=== PATIENT | male | born 1950 | race Caucasian/White ===

== ENCOUNTER 2017-09-17 15:59 | Emergency (ER) | payer MEDICARE, MEDICAID ==
[~2017-09-17] VITALS: Ht 172.7 cm; Wt 74.8 kg
[~2017-09-17 15:59] MED LIST: AMARYL4 MG PO; AVODART0.5 MG PO; CATAPRES0.2 MG PO; CEFTIN500 MG PO; CLONIDINE 0.2M0.2 MG PO; COREG CR20 MG PO; FLOMAX 0.4MG C0.4 MG PO; GABAPENTIN 400400 MG PO; GLYBURIDE2.5 M1 PO; HYZAAR 50-12.51 EACH PO; HYZAAR1 TA1 PO; INSULIN GL100 UNITS/ SC; JANUMET 1000 MG1 TAB PO; LISINOPRIL/HCTZ1 TA3 PO; LOSARTAN POTAS100 MG PO; MICARDIS HCT 251 TAB; MICARDIS HCT 251 TAB PO; OMEPRAZOLE20 MG PO; POTASSIUM CHLO10 ME3 PO; PRISTIQ100 MG PO; PROZAC40 MG PO; REGLAN 10 MG TA10 MG PO; SIMVASTATIN40 MG PO; TAMSULOSIN HYD0.4 M1 PO
[2017-09-17 16:12] LABS: LYMPH # 1.6 K/mm3 (0.7-4.5); LYMPH % 15.3 % (10-50)
--- OUTSIDE RECORDS SUMMARY | 2017-09-17 16:13 | External Medical Summary Rpt | CCD ---
Author Author , FARIHA FRIED Address Unknown Phone [email or web address] Care Team Providers Care Upper Cutter Out Name Role Phone Sondra DENNIS, Unavailable Unavailable Sondra Drew APRN, Unavailable Unavailable Lise Snell MD, Unavailable Unavailable Andree Snell MD Purpose Continuity of Care Document - 09-12-2013 through 2016 Problems Code Diagnosis DOS Provider Status [id number] Alcohol Bruce abuse [facility] 276.8 Hypokalemia [facility] 285.9 Anemia [facility] 287.5 Acquired Bruce thrombocyto [facility] [id number] Fever [facility] 401.9 Hypertensiv Bruce e urgency [facility] [id number] Diabetes Bruce mellitus [facility] type 2 [facility] [id number] Active [facility] 571.2 Alcoholic Bruce cirrhosis [facility] 584.9 Acute renal Bruce failure [facility] 784.7 Epistaxis [facility] 787.02 Nausea [facility] 790.92 Coagulation Bruce /bleeding [facility] abnormal [id number] Chronic [facility] Allergies, Adverse Reactions, Alerts Type Allergy to substance Adverse Reaction to Substance Substance Reaction Severity AVALOX TONGUE AND FACE Severe SWELLED Medications Na ND Rx Da Fi Fi Am Da Di Ph RX Ph St me C No te ll ll ou ys ag ar # ys at rm s nt no ma ic us Or Da si cy ia de te s n re d CL 51 11 1 No ON 07 -1 ID 90 7- Lo IN 30 20 ng E 02 13 er HC 0 L Ac 0. ti 2 ve MG TA BL ET CE 00 11 1 No FT 40 -1 RI 97 7- Lo AX 33 20 ng ON 30 13 er E 4 1 Ac GM ti ve AL SO 00 11 1 No DI 40 -1 UM 97 7- Lo 10 20 ng CH 16 13 er LO 6 RI Ac DE ti ve 0. 9% SO LN FS 11 2 No -1 BL 6- Lo OO 20 ng D 13 er COUCH GA Ac R ti ve FL 00 11 2 No UO 90 -1 XE 45 6- Lo TI 78 20 ng NE 56 13 er 1 HC Ac L ti 20 ve MG CA PS UL E AV 00 11 2 No AP 08 -1 RO 72 6- Lo 77 20 ng 15 23 13 er 0 1 MG Ac ti TA ve BL ET PA 51 11 2 No NT 07 -1 OP 90 6- Lo RA 05 20 ng ZO 12 13 er LE 0 Ac SO ti D ve DR 40 MG TA B PO 00 11 2 No TA 40 -1 SS 99 6- Lo IU 25 20 ng M 73 13 er CL 9 Ac 20 ti ve ME Q- 0. 45 % NA CL Sa 63 11 1 No li 80 -1 ne 70 5- Lo 10 20 ng Fl 07 13 er us 5 h Ac 10 ti ML ve Sy ri ng e MA 00 11 0 No PA 90 -1 P 41 5- Lo 32 98 20 ng 5 26 13 er MG 1 Ac TA ti BL ve ET Po 00 11 0 No ta 24 -1 ss 50 5- Lo iu 05 20 ng m 80 13 er Ch 1 lo Ac ri ti de ve 20 ME Q Ta bl e SO 00 11 1 No DI 40 -1 UM 97 5- Lo 98 20 ng CH 30 13 er LO 9 RI Ac DE ti ve 0. 9% SO BERNARD TI ON FL 00 11 0 No UO 90 -0 XE 45 5- Lo TI 78 20 ng NE 56 13 er 1 HC Ac L ti 20 ve MG CA PS UL E AV 00 11 0 No AP 08 -0 RO 72 5- Lo 77 20 ng 15 23 13 er 0 1 MG Ac ti TA ve BL ET CE 00 11 0 No FT 40 -0 RI 97 5- Lo AX 33 20 ng ON 30 13 er E 4 1 Ac GM ti ve AL SO 00 11 0 No DI 40 -0 UM 97 5- Lo 10 20 ng CH 16 13 er LO 6 RI Ac DE ti ve 0. 9% SO LN CE 00 11 0 No FT 40 -0 RI 97 4- Lo AX 33 20 ng ON 30 13 er E 4 1 Ac GM ti ve AL CE 00 11 0 No FA 40 -0 ZO 92 4- Lo LI 58 20 ng N 50 13 er 1 1 GM Ac ti AD ve D- VA N AL SO 00 11 0 No DI 40 -0 UM 97 4- Lo 98 20 ng CH 30 13 er LO 9 RI Ac DE ti ve 0. 9% SO BERNARD TI ON LA [address] 40 -0 AT 97 4- Lo ED 95 20 ng 30 13 er RI 9 NG Ac ER ti S ve IN JE CT IO N Sa 63 11 1 No li 80 -0 ne 70 4- Lo 10 20 ng Fl 07 13 er us 5 h Ac 10 ti ML ve Sy ri ng e LO 00 11 0 No RA 64 -0 ZE 16 4- Lo PA 04 20 ng M 82 13 er 2 5 MG Ac /M ti L ve AL CL 51 11 1 No ON 07 -0 ID 90 4- Lo IN 30 20 ng E 02 13 er HC 0 L Ac 0. ti 2 ve MG TA BL ET Ga 68 11 1 No ba 08 -0 pe 40 4- Lo nt 59 20 ng in 56 13 er 5 40 Ac 0M ti G ve Ca ps ul e TA 51 11 1 No MS 07 -0 UL 90 4- Lo OS 29 20 ng IN 42 13 er 0 HC Ac L ti 0. ve 4 MG CA PS UL E CO 00 11 0 No CA 52 -0 IN 71 4- Lo E 72 20 ng 4% 87 13 er 4 SO Ac BERNARD ti TI ve ON CO 61 11 0 No RT 57 -0 IS 00 4- Lo PO 03 20 ng RI 15 13 er N 0 OI Ac NT ti ME ve NT De 00 11 0 No xa 51 -0 me 74 4- Lo th 90 20 ng as 52 13 er on 5 e Ac 4M ti G/ ve Ml 5M L Md v Me 68 11 1 No to 08 -0 cl 40 4- Lo op 09 20 ng ra 10 13 er mi 1 de Ac ti 10 ve MG Ta bl et FS 11 1 No -0 BL 4- Lo OO 20 ng D 13 er COUCH GA Ac R ti ve HU 00 11 1 No MA 00 -0 LO 27 4- Lo G 51 20 ng 10 01 13 er 0 7 UN Ac IT ti S/ ve ML AL Ir 00 11 1 No be 08 -0 sa 72 4- Lo rt 77 20 ng an 13 13 er 1 75 Ac MG ti ve Ta bl et HY [address] 07 -0 OC 90 4- Lo HL 77 20 ng OR 62 13 er OT 0 HI Ac AZ ti ID ve E 12 .5 MG CP CA 51 11 1 No RV 07 -0 ED 90 4- Lo IL 93 20 ng OL 02 13 er 0 6. Ac 25 ti ve MG TA BL ET PA 51 11 1 No NT 07 -0 OP 90 4- Lo RA 05 20 ng ZO 12 13 er LE 0 Ac SO ti D ve DR 40 MG TA B Vital Signs 09-26-2013 10:27 Name Value Interpretat Reference Comment ion Range Body 98.2 [degF] Temperature BP 74 mm[Hg] Diastolic BP Systolic 169 mm[Hg] Heart 81 /min Rate/Pulse Respiratory 20 /min Rate 09-26-2013 08:00 Name Value Interpretat Reference Comment ion Range O2% 95 % 09-23-2013 22:18 Name Value Interpretat Reference Comment ion Range Height 171.45 cm Weight 99.111 kg Measured 09-23-2013 19:28 Name Value Interpretat Reference Comment ion Range Body 100.0 Temperature [degF] BP 64 mm[Hg] Diastolic BP Systolic 100 mm[Hg] Heart 93 /min Rate/Pulse O2% 93 % Respiratory 20 /min Rate Weight 0 [oz_av] Measured 09-13-2013 09:45 Name Value Interpretat Reference Comment ion Range Body 98.3 [degF] Temperature BP 76 mm[Hg] Diastolic BP Systolic 158 mm[Hg] Heart 83 /min Rate/Pulse Respiratory 22 /min Rate 09-13-2013 07:52 Name Value Interpretat Reference Comment ion Range O2% 95 % 09-12-2013 16:09 Name Value Interpretat Reference Comment ion Range Weight 99.792 kg Measured 09-12-2013 08:00 Name Value Interpretat Reference Comment ion Range Height 170.18 cm 09-12-2013 06:14 Name Value Interpretat Reference Comment ion Range Body 97.6 [degF] Temperature BP 110 mm[Hg] Diastolic BP Systolic 204 mm[Hg] Heart 74 /min Rate/Pulse O2% 98 % Respiratory 20 /min Rate Weight 0 [oz_av] Measured Results Labs Lab Lab Date Result Refere Interp Status Commen Order Detail nces retati t Range on Glucose BldC Glucomtr-nc (09-26-2013 06:39) Glucose 145 70-110 complet BldC 013 mg/dl ed Glucomt 06:39 r-[facility] BASIC METABOLIC PANEL (09-26-2013 06:20) Glucose 11-18-2 137 74-106 complet 013 mg/dL ed Bld-mCn 06:20 c BUN 11-18-2 13 7-18 complet Bld-mCn 013 mg/dL ed c 06:20 Creat 11-18-2 1.1 0.8-1.3 complet SerPl-m 013 mg/dL ed Cnc 06:20 ESTIMAT 11-18-2 94 50-200 complet ED 013 ML/MIN ed CREATIN 06:20 INE CLEARAN CE GFR 11-18-2 67 Greater complet (ESTIMA 013 ML/MIN than ed ELOY) 06:20 60 Sodium 11-18-2 139 136-145 complet SerPl-s 013 mmoL/L ed Cnc 06:20 Potassi 11-18-2 3.5 3.5-5.1 complet um 013 mmoL/L ed SerPl-s 06:20 Cnc Chlorid 11-18-2 104 98-107 complet e 013 mmoL/L ed SerPl-s 06:20 Cnc CO2 11-18-2 24 21.0-32 complet SerPl-s 013 mmoL/L .0 ed Cnc 06:20 Calcium 11-18-2 7.9 8.5-10. complet 013 mg/dL 1 ed SerPl-m 06:20 Cnc CBC with AUTO DIFF (09-26-2013 06:20) WBC # 11-18-2 6.7 4.8-10. complet Bld 013 K/MM3 8 ed Auto 06:20 RBC # 11-18-2 3.71 4.6-6.2 complet Bld 013 M/mm3 ed Auto 06:20 Hgb 11-18-2 9.9 14.1-18 complet Bld-mCn 013 g/dL .0 ed c 06:20 Hct Fr 11-18-2 30.7 % 42.0-52 complet Bld 013 .0 ed 06:20 MCV RBC 11-18-2 82.8 fl 82.2-97 complet 013 .8 ed 06:20 MCH RBC 11-18-2 26.6 pg 27-31.2 complet Qn 013 ed Auto 06:20 MEAN 11-18-2 32.1 31.8-35 complet CORPUSC 013 g/dl .4 ed ULAR 06:20 HGB CONC RDW RBC 11-18-2 15.9 % 11.5-17 complet Auto 013 .5 ed 06:20 Platele 11-18-2 184 142-424 complet t Bld 013 K/mm3 ed Ql 06:20 Manual MEAN 11-18-2 9.4 fl 7.4-10. complet PLATELE 013 4 ed T 06:20 VOLUME Granulo 11-18-2 66.7 % 37.0-80 complet cytes 013 .0 ed Fr Bld 06:20 Auto LYMPH % 11-18-2 22.3 % 10-50 complet 013 ed 06:20 Monocyt 11-18-2 10.4 % 1.7-9.3 complet es Fr 013 ed Bld 06:20 Auto Eosinop 11-18-2 0.4 % 0.1-12. complet hil Fr 013 0 ed Bld 06:20 Auto Basophi 11-18-2 0.3 % 0.1-2.0 complet ls Fr 013 ed Bld 06:20 Auto Granulo 11-18-2 4.4 1.3-8.0 complet cytes # 013 K/mm3 ed Bld 06:20 Auto Lymphoc 11-18-2 1.5 0.7-4.5 complet ytes Fr 013 K/mm3 ed Bld 06:20 Auto Monocyt 11-18-2 0.7 0.1-1.0 complet es # 013 K/mm3 ed Bld 06:20 Auto Eosinop 11-18-2 0.0 0.0-0.4 complet hil # 013 K/mm3 ed Bld 06:20 Auto Basophi 11-18-2 0.0 0-0.2 complet ls # 013 K/MM3 ed Bld 06:20 Auto Glucose BldC Glucomtr[facility] (09-25-2013 20:10) Glucose 09-25-2 137 70-110 complet BldC 013 mg/dl ed Glucomt 20:10 r-nc Glucose BldC Glucomtr-nc (09-25-2013 17:11) Glucose 11-2 129 70-110 complet BldC 013 mg/dl ed Glucomt 17:11 r-nc Glucose BldC Glucomtr-nc (09-25-2013 12:35) Glucose 09-25-2 149 70-110 complet BldC 013 mg/dl ed Glucomt 12:35 r-nc Glucose BldC Glucomtr-[facility] (09-25-2013 06:43) Glucose -17-2 155 70-110 complet BldC 013 mg/dl ed Glucomt 06:43 r-[facility] BASIC METABOLIC PANEL (09-25-2013 06:10) Glucose -17-2 147 74-106 complet 013 mg/dL ed Bld-mCn 06:10 c BUN -17-2 24 7-18 complet Bld-mCn 013 mg/dL ed c 06:10 Creat -17-2 1.7 0.8-1.3 complet SerPl-m 013 mg/dL ed Cnc 06:10 ESTIMAT -17-2 61 50-200 complet ED 013 ML/MIN ed CREATIN 06:10 INE CLEARAN CE GFR 17-2 41 Greater complet (ESTIMA 013 ML/MIN than ed ELOY) 06:10 60 Sodium -17-2 141 136-145 complet SerPl-s 013 mmoL/L ed Cnc 06:10 Potassi -17-2 3.5 3.5-5.1 complet um 013 mmoL/L ed SerPl-s 06:10 Cnc Chlorid 17-2 104 98-107 complet e 013 mmoL/L ed SerPl-s 06:10 Cnc CO2 17-2 25 21.0-32 complet SerPl-s 013 mmoL/L .0 ed Cnc 06:10 Calcium 11-17-2 8.5 8.5-10. complet 013 mg/dL 1 ed SerPl-m 06:10 [facility] CBC with AUTO DIFF (09-25-2013 06:10) WBC # 11-17-2 13.7 4.8-10. complet Bld 013 K/MM3 8 ed Auto 06:10 RBC # 11-17-2 4.02 4.6-6.2 complet Bld 013 M/mm3 ed Auto 06:10 Hgb -17-2 11.2 14.1-18 complet Bld-mCn 013 g/dL .0 ed c 06:10 Hct Fr -17-2 33.3 % 42.0-52 complet Bld 013 .0 ed 06:10 MCV RBC 11-17-2 82.8 fl 82.2-97 complet 013 .8 ed 06:10 MCH RBC 11-17-2 27.8 pg 27-31.2 complet Qn 013 ed Auto 06:10 MEAN 11-17-2 33.6 31.8-35 complet CORPUSC 013 g/dl .4 ed ULAR 06:10 HGB CONC RDW RBC 11-17-2 16.0 % 11.5-17 complet Auto 013 .5 ed 06:10 Platele 11-17-2 231 142-424 complet t Bld 013 K/mm3 ed Ql 06:10 Manual MEAN 11-17-2 9.0 fl 7.4-10. complet PLATELE 013 4 ed T 06:10 VOLUME Granulo 11-17-2 74.4 % 37.0-80 complet cytes 013 .0 ed Fr Bld 06:10 Auto LYMPH % 11-17-2 16.5 % 10-50 complet 013 ed 06:10 Monocyt 11-17-2 8.1 % 1.7-9.3 complet es Fr 013 ed Bld 06:10 Auto Eosinop 11-17-2 0.7 % 0.1-12. complet hil Fr 013 0 ed Bld 06:10 Auto Basophi 11-17-2 0.2 % 0.1-2.0 complet ls Fr 013 ed Bld 06:10 Auto Granulo 11-17-2 10.2 1.3-8.0 complet cytes # 013 K/mm3 ed Bld 06:10 Auto Lymphoc 11-17-2 2.3 0.7-4.5 complet ytes Fr 013 K/mm3 ed Bld 06:10 Auto Monocyt 11-17-2 1.1 0.1-1.0 complet es # 013 K/mm3 ed Bld 06:10 Auto Eosinop 11-17-2 0.1 0.0-0.4 complet hil # 013 K/mm3 ed Bld 06:10 Auto Basophi 11-17-2 0.0 0-0.2 complet ls # 013 K/MM3 ed Bld 06:10 Auto Glucose BldC Glucomtr-[facility] (09-24-2013 21:52) Glucose 11-16-2 102 70-110 complet BldC 013 mg/dl ed Glucomt 21:52 r[facility] Glucose BldC Glucomtr[facility] (09-24-2013 17:03) Glucose 11-16-2 99 70-110 complet BldC 013 mg/dl ed Glucomt 17:03 r-mCnc Glucose BldC Glucomtr-[facility] (09-24-2013 12:08) Glucose 09-24- 104 70-110 complet BldC 013 mg/dl ed Glucomt 12:08 r[facility] Glucose BldC Glucomtr[facility] (09-24-2013 06:37) Glucose 126 70-110 complet BldC 013 mg/dl ed Glucomt 06:37 r-[facility] BASIC METABOLIC PANEL (09-24-2013 06:15) Glucose 09-24- 114 74-106 complet 013 mg/dL ed Bld-mCn 06:15 c BUN 42 7-18 complet Bld-mCn 013 mg/dL ed c 06:15 Creat 2.6 0.8-1.3 complet SerPl-m 013 mg/dL ed Cnc 06:15 ESTIMAT 40 50-200 complet ED 013 ML/MIN ed CREATIN 06:15 INE CLEARAN CE GFR 25 Greater complet (ESTIMA 013 ML/MIN than ed ELOY) 06:15 60 Sodium 142 136-145 complet SerPl-s 013 mmoL/L ed Cnc 06:15 Potassi 3.2 3.5-5.1 complet um 013 mmoL/L ed SerPl-s 06:15 Cnc Chlorid 105 98-107 complet e 013 mmoL/L ed SerPl-s 06:15 Cnc CO2 28 21.0-32 complet SerPl-s 013 mmoL/L .0 ed Cnc 06:15 Calcium 8.0 8.5-10. complet 013 mg/dL 1 ed SerPl-m 06:15 Cnc Vit B12 Ser[facility] (09-24-2013 06:15) Vit B12 175 200-110 complet 013 pg/mL 0 ed Ser-mCn 06:15 c Folate SerPl-mCnc (09-24-2013 06:15) Folate 3.8 () complet SerPl-m 013 ng/mL ed Cnc 06:15 Ferritin SerPl-mCnc (09-24-2013 06:15) Ferriti 113 8-388 complet n 013 ng/mL ed SerPl-m 06:15 Cnc URINALYSIS/COMPLETE (09-23-2013 20:20) URINE 11-15-2 YELLOW YELLOW complet COLOR 013 ed 20:20 URINE 11-15-2 CLEAR CLEAR complet APPEARA 013 ed NCE 20:20 URINE 11-15-2 NEGATIV NEG complet GLUCOSE 013 E ed - 20:20 DIPSTIC K URINE 11-15-2 NEGATIV NEG complet BILIRUB 013 E ed IN - 20:20 DIPSTIC K URINE 11-15-2 NEGATIV NEG complet KETONE 013 E mg/dL ed 20:20 URINE 11-15-2 1.015 1.005-1 complet SPECIFI 013 UNK .030 ed C 20:20 GRAVITY URINE 11-15-2 NEGATIV NEG complet BLOOD 013 E ed 20:20 URINE 11-15-2 6.0 UNK 5.0-8.5 complet PH 013 ed 20:20 URINE 11-15-2 NEGATIV NEG complet PROTEIN 013 E mg/dL ed - 20:20 DIPSTIC K URINE 11-15-2 0.2 NEG complet UROBILI 013 E.U./dL ed NOGEN - 20:20 DIPSTIC K URINE 11-15-2 NEGATIV NEG complet NITRATE 013 E ed - 20:20 DIPSTIC K URINE 11-15-2 NEGATIV NEG complet LEUK 013 E ed ESTERAS 20:20 E URINE 11-15-2 OCC 0 complet RBC 013 rbc/hpf ed 20:20 URINE 11-15-2 OCC OCC complet SQUAMOU 013 #/hpf ed S CELLS 20:20 BASIC METABOLIC PANEL (09-23-2013 19:43) Glucose 11-15-2 121 74-106 complet 013 mg/dL ed Bld-mCn 19:43 c BUN -15-2 43 7-18 complet Bld-mCn 013 mg/dL ed c 19:43 Creat 11-15-2 3.2 0.8-1.3 complet SerPl-m 013 mg/dL ed Cnc 19:43 Creat 11-15-2 31 50-200 complet Cl 013 ML/MIN ed predict 19:43 ed SerPl C-G-vRa te GFR 15-2 20 Greater complet (ESTIMA 013 ML/MIN than ed ELOY) 19:43 60 Sodium -15-2 139 136-145 complet SerPl-s 013 mmoL/L ed Cnc 19:43 Potassi 11-15-2 3.1 3.5-5.1 complet um 013 mmoL/L ed SerPl-s 19:43 Cnc Chlorid 11-15-2 101 98-107 complet e 013 mmoL/L ed SerPl-s 19:43 Cnc CO2 11-15-2 23 21.0-32 complet SerPl-s 013 mmoL/L .0 ed Cnc 19:43 Calcium 11-15-2 8.1 8.5-10. complet 013 mg/dL 1 ed SerPl-m 19:43 Cnc CBC with AUTO DIFF (09-23-2013 19:43) WBC # 11-15-2 10.2 4.8-10. complet Bld 013 K/MM3 8 ed Auto 19:43 RBC # 11-15-2 3.88 4.6-6.2 complet Bld 013 M/mm3 ed Auto 19:43 Hgb 11-15-2 10.6 14.1-18 complet Bld-mCn 013 g/dL .0 ed c 19:43 Hct Fr 11-15-2 31.7 % 42.0-52 complet Bld 013 .0 ed 19:43 MCV RBC 11-15-2 81.5 fl 82.2-97 complet 013 .8 ed 19:43 MCH RBC 11-15-2 27.2 pg 27-31.2 complet Qn 013 ed Auto 19:43 MEAN 11-15-2 33.3 31.8-35 complet CORPUSC 013 g/dl .4 ed ULAR 19:43 HGB CONC RDW RBC 11-15-2 16.1 % 11.5-17 complet Auto 013 .5 ed 19:43 Platele 11-15-2 155 142-424 complet t Bld 013 K/mm3 ed Ql 19:43 Manual MEAN 11-15-2 10.3 fl 7.4-10. complet PLATELE 013 4 ed T 19:43 VOLUME Granulo 11-15-2 79.4 % 37.0-80 complet cytes 013 .0 ed Fr Bld 19:43 Auto LYMPH % 11-15-2 11.4 % 10-50 complet 013 ed 19:43 Monocyt 11-15-2 8.6 % 1.7-9.3 complet es Fr 013 ed Bld 19:43 Auto Eosinop 11-15-2 0.4 % 0.1-12. complet hil Fr 013 0 ed Bld 19:43 Auto Basophi 11-15-2 0.1 % 0.1-2.0 complet ls Fr 013 ed Bld 19:43 Auto Granulo 11-15-2 8.1 1.3-8.0 complet cytes # 013 K/mm3 ed Bld 19:43 Auto Lymphoc 11-15-2 1.2 0.7-4.5 complet ytes Fr 013 K/mm3 ed Bld 19:43 Auto Monocyt 11-15-2 0.9 0.1-1.0 complet es # 013 K/mm3 ed Bld 19:43 Auto Eosinop 11-15-2 0.0 0.0-0.4 complet hil # 013 K/mm3 ed Bld 19:43 Auto Basophi 11-15-2 0.0 0-0.2 complet ls # 013 K/MM3 ed Bld 19:43 Auto Glucose BldC Glucomtr-mCnc (09-13-2013 06:28) Glucose 11-05-2 175 70-110 complet BldC 013 mg/dl ed Glucomt 06:28 r-mCnc CBC with AUTO DIFF (09-13-2013 06:10) WBC # 11-05-2 9.1 4.8-10. complet Bld 013 K/mm3 8 ed Auto 06:10 RBC # 11-05-2 4.39 4.6-6.2 complet Bld 013 M/mm3 ed Auto 06:10 Hgb 11-05-2 11.2 14.1-18 complet Bld-mCn 013 g/dL .0 ed c 06:10 Hct Fr 1105-2 36.3 % 42.0-52 complet Bld 013 .0 ed 06:10 MCV RBC 11-05-2 82.6 fL 82.2-97 complet 013 .8 ed 06:10 MCH RBC 11-05-2 25.5 pg 27-31.2 complet Qn 013 ed Auto 06:10 MEAN 11-05-2 30.9 31.8-35 complet CORPUSC 013 g/dl .4 ed ULAR 06:10 HGB CONC RDW RBC -05-2 16.2 % 11.5-17 complet Auto 013 .5 ed 06:10 Platele 09-13-2 155 142-424 complet t Bld 013 K/mm3 ed Ql 06:10 Manual Granulo 81.3 % 37.0-80 complet cytes 013 .0 ed Fr Bld 06:10 Auto LYMPH % 16.2 % 10-50 complet 013 ed 06:10 Monocyt 2.5 % 1.7-9.3 complet es Fr 013 ed Bld 06:10 Auto Granulo 7.4 1.3-8.0 complet cytes # 013 K/mm3 ed Bld 06:10 Auto Lymphoc 1.5 0.7-4.5 complet ytes Fr 013 K/mm3 ed Bld 06:10 Auto Monocyt 0.2 0.1-1.0 complet es # 013 K/mm3 ed Bld 06:10 Auto Glucose BldC Glucomtr-[facility] (09-12-2013 21:17) Glucose 219 70-110 complet BldC 013 mg/dl ed Glucomt 21:17 r-nc Glucose BldC Glucomtr-[facility] (09-12-2013 16:37) Glucose 155 70-110 complet BldC 013 mg/dl ed Glucomt 16:37 r-nc PLATELET PHERESIS (09-12-2013 15:00) PLATELE [id number] complet T 013 [id number] ed PHERESI 15:00 S BASIC METABOLIC PANEL (09-12-2013 07:00) Glucose 132 74-106 complet 013 mg/dL ed Bld-mCn 07:00 c BUN 11 7-18 complet Bld-mCn 013 mg/dL ed c 07:00 Creat 0.9 0.8-1.3 complet SerPl-m 013 mg/dL ed Cnc 07:00 ESTIMAT 116 50-200 complet ED 013 ML/MIN ed CREATIN 07:00 INE CLEARAN CE GFR 85 Greater complet (ESTIMA 013 ML/MIN than ed ELOY) 07:00 60 Sodium 142 136-145 complet SerPl-s 013 mmoL/L ed Cnc 07:00 Potassi 3.7 3.5-5.1 complet um 013 mmoL/L ed SerPl-s 07:00 Cnc Chlorid 104 98-107 complet e 013 mmoL/L ed SerPl-s 07:00 Cnc CO2 2 28 21.0-32 complet SerPl-s 013 mmoL/L .0 ed Cnc 07:00 Calcium 09-12-2 8.7 8.5-10. complet 013 mg/dL 1 ed SerPl-m 07:00 Cnc LIVER PROFILE (09-12-2013 07:00) Prot 09-12-2 7.2 6.4-8.2 complet SerPl-m 013 gm/dL ed Cnc 07:00 Albumin 3.5 3.4-5.0 complet 013 gm/dL ed SerPl-m 07:00 Cnc Bilirub 09-12-2 0.5 0.2-1.0 complet 013 mg/dL ed SerPl-m 07:00 Cnc Bilirub 09-12-2 0.24 0.0-0.2 complet Direct 013 mg/dL ed 07:00 SerPl-m Cnc Bilirub 09-12-2 0.26 0-0.9 complet 013 mg/dL ed Indirec 07:00 t SerPl-m Cnc AST 09-12-2 29 U/L 15-37 complet SerPl-c 013 ed Cnc 07:00 ALT 09-12-2 37 U/L 30-65 complet SerPl-c 013 ed Cnc 07:00 ALP 100 U/L 50-136 complet SerPl-c 013 ed Cnc 07:00 PROTIME/INR (09-12-2013 07:00) PROTHRO 09-12-2 11.6 9.9-11. complet MBIN 013 SECONDS 6 ed TIME 07:00 INR Bld 2 1.08 0.9-1.1 complet 013 UNK ed 07:00 ACT PARTIAL THROMBO TIME (09-12-2013 07:00) ACT 09-12-2 26.8 25.3-32 complet PARTIAL 013 SECONDS .0 ed 07:00 THROMBO TIME CBC with AUTO DIFF (09-12-2013 07:00) WBC # -04-2 7.5 4.8-10. complet Bld 013 K/MM3 8 ed Auto 07:00 RBC # 11-04-2 4.60 4.6-6.2 complet Bld 013 M/mm3 ed Auto 07:00 Hgb 2 11.8 14.1-18 complet Bld-mCn 013 g/dL .0 ed c 07:00 Hct Fr 2 38.0 % 42.0-52 complet Bld 013 .0 ed 07:00 MCV RBC 82.6 fl 82.2-97 complet 013 .8 ed 07:00 MCH RBC 2 25.7 pg 27-31.2 complet Qn 013 ed Auto 07:00 MEAN 31.1 31.8-35 complet CORPUSC 013 g/dl .4 ed ULAR 07:00 HGB CONC RDW RBC 2 17.1 % 11.5-17 complet Auto 013 .5 ed 07:00 Platele 2 125 142-424 complet t Bld 013 K/mm3 ed Ql 07:00 Manual Granulo 2 71.4 % 37.0-80 complet cytes 013 .0 ed Fr Bld 07:00 Auto LYMPH % 09-12-2 24.2 % 10-50 complet 013 ed 07:00 Monocyt 09-12-2 4.4 % 1.7-9.3 complet es Fr 013 ed Bld 07:00 Auto Granulo 09-12-2 5.4 1.3-8.0 complet cytes # 013 K/mm3 ed Bld 07:00 Auto Lymphoc 09-12-2 1.8 0.7-4.5 complet ytes Fr 013 K/mm3 ed Bld 07:00 Auto Monocyt 09-12-2 0.3 0.1-1.0 complet es # 013 K/mm3 ed Bld 07:00 Auto Procedures Procedure DOS Code Location Performer Comment PACKED 99.04 Andree PAGE MD ON ETHMOID 21.04 Andree Coon ART [place] [facility] Encounters Encounter Start End Date Code Location Performer Type Date Inpatient KARLA Snell ([place]) 3 19:39 3 10:30 Nellie ISMON [facility] Inpatient KARLA Carrion MD ([place]) 3 06:32 3 09:45 [facility]
--- OUTSIDE RECORDS SUMMARY | 2017-09-17 16:13 | External Medical Summary Rpt | CCD ---
Author Author , FARIHA FRIED Address Unknown Phone [email or web address] Providers Care [facility] Home Care Coordinator Name Role Phone Sondra DENNIS, Unavailable Unavailable Sondra Drew APRN, Unavailable Unavailable Lise Snell MD, Unavailable Unavailable Andree Snell MD Purpose Continuity of Care Document - 09-12-2013 through 2016 Problems Code Diagnosis DOS Provider Status [id number] Alcohol [place] abuse [facility] 276.8 Hypokalemia [facility] 285.9 Anemia [facility] 287.5 Acquired [place] thrombocyto [facility] [id number] Fever [facility] 401.9 Hypertensiv [place] e urgency [facility] [id number] Diabetes [place] mellitus [facility] type 2 [facility] [id number] Active [facility] 571.2 Alcoholic [place] cirrhosis [facility] 584.9 Acute renal [place] failure [facility] 784.7 Epistaxis [facility] 787.02 Nausea [facility] 790.92 Coagulation [place] /bleeding [facility] abnormal [id number] Chronic [facility] Allergies, Adverse Reactions, Alerts Type Allergy [...] complet BldC 013 mg/dl ed Glucomt 06:39 r-[facility] BASIC METABOLIC PANEL (09-26-2013 06:20) Glucose [...] K/MM3 ed Bld 06:20 Auto Glucose BldC Glucomtr-[facility] (09-25-2013 20:10) Glucose 09-25-2 137 70-110 complet BldC 013 mg/dl ed Glucomt 20:10 r-nc Glucose BldC Glucomtr-nc (09-25-2013 17:11) Glucose 11-2 129 70-110 complet BldC 013 mg/dl ed Glucomt 17:11 r-nc Glucose BldC Glucomtr-nc (09-25-2013 12:35) Glucose 09-25-2 149 70-110 complet BldC 013 mg/dl ed Glucomt 12:35 r-nc Glucose BldC Glucomtr-[facility] (09-25-2013 06:43) Glucose -17-2 155 70-110 complet BldC 013 mg/dl ed Glucomt 06:43 r-[facility] BASIC METABOLIC PANEL (09-25-2013 06:10) Glucose [...] complet 013 mg/dL 1 ed SerPl-m 06:10 [facility] CBC with AUTO DIFF (09-25-2013 06:10) WBC [...] K/MM3 ed Bld 06:10 Auto Glucose BldC Glucomtr-[facility] (09-24-2013 21:52) Glucose 11-16-2 102 70-110 complet BldC 013 mg/dl ed Glucomt 21:52 r-[facility] Glucose BldC Glucomtr-[facility] (09-24-2013 17:03) Glucose 11-16-2 99 70-110 complet BldC 013 mg/dl ed Glucomt 17:03 r-mCnc Glucose BldC Glucomtr-[facility] (09-24-2013 12:08) Glucose 09-24- 104 70-110 complet BldC 013 mg/dl ed Glucomt 12:08 r-[facility] Glucose BldC Glucomtr-[facility] (09-24-2013 06:37) Glucose 126 70-110 complet BldC 013 mg/dl ed Glucomt 06:37 r-[facility] BASIC METABOLIC PANEL (09-24-2013 06:15) Glucose [...] 1 ed SerPl-m 06:15 Cnc Vit B12 Ser-[facility] (09-24-2013 06:15) Vit B12 175 200-110 [...] K/mm3 ed Bld 06:10 Auto Glucose BldC Glucomtr-[facility] (09-12-2013 21:17) Glucose 219 70-110 complet BldC 013 mg/dl ed Glucomt 21:17 r-nc Glucose BldC Glucomtr-[facility] (09-12-2013 16:37) Glucose 155 70-110 complet BldC 013 mg/dl ed Glucomt 16:37 r-nc PLATELET PHERESIS (09-12-2013 15:00) PLATELE [id number] complet T 013 [id number] ed PHERESI 15:00 [...] Snell ([place]) 3 19:39 3 10:30 Nellie SIMON [facility] Inpatient KARLA Carrion MD ([place]) 3 06:32 3 09:45 [facility]
--- OUTSIDE RECORDS SUMMARY | 2017-09-17 16:14 | External Medical Summary Rpt | CCD ---
Author Author [employer] Organization [employer] Address Unknown Phone Unavailable Purpose Continuity of Care Document - through 2016
--- OUTSIDE RECORDS SUMMARY | 2017-09-17 16:14 | External Medical Summary Rpt | CCD ---
Demographics Preferred Language Moroccan Marital Status Unknown Mormon Affiliation Unknown Race Unknown Ethnic Group Unknown Author Author , FARIHA FRIED Address Unknown Phone Immunization No patient found.
--- OUTSIDE RECORDS SUMMARY | 2017-09-17 16:14 | External Medical Summary Rpt | CCD ---
Demographics Preferred Language Mauritian Marital Status Unknown Tenriism Affiliation Unknown Race Unknown Ethnic Group Unknown Author Author , FARIHA FRIED Address Unknown Phone Immunization No patient found.
--- OUTSIDE RECORDS SUMMARY | 2017-09-17 16:15 | External Medical Summary Rpt ---
Author Author FARIHA Production, FARIHA Production Organization [employer] Address Unknown Phone Unavailable Results Prealbumin Observa Value Referen Units Interpr Notes Date tion ce etation Range Prealbu 12.2 20.0 - mg/dL Low No April 04 min 40.0 informa 2016 tion in 9:26 AM source data Hemogram Observa Value Referen Units Interpr Notes Date tion ce etation Range LEUKOCY 5.3 4.0 - x10(3)/ No No April 04 MARIKA 11.0 mcL informa informa 2016 tion in tion in 9:02 AM source source data data Erythro 4.63 4.30 - x10(6)/ No No April 04 cytes 5.81 mcL informa informa 2016 [#/volu tion in tion in 9:02 AM me] in source source Blood data data by Automat ed count Hemoglo 13.4 13.5 - gm/dL Low No April 04 bin 17.1 informa 2015 [Mass/v tion in 9:02 AM olume] source in data Blood Hematoc 40.7 38.9 - % No No April 04 rit 51.6 informa informa 2016 [Volume tion in tion in 9:02 AM source source Fractio data data n] of Blood by Automat ed count Erythro 87.8 82.5 - fL No No April 04 cyte 99.8 informa informa 2016 mean tion in tion in 9:02 AM corpusc source source ular data data volume [Entiti c volume] by Automat ed count Erythro 28.8 27.0 - pg No No April 04 cyte 34.3 informa informa 2016 mean tion in tion in 9:02 AM corpusc source source ular data data hemoglo bin [Entiti c mass] by Automat ed count Erythro 32.8 32.1 - gm/dL No No April 04 cyte 35.3 informa informa 2016 mean tion in tion in 9:02 AM corpusc source source ular data data hemoglo bin concent ration [Mass/v olume] by Automat ed count Erythro 14.9 11.5 - % No No April 04 cyte 15.0 informa informa 2016 distrib tion in tion in 9:02 AM ution source source width data data [Ratio] by Automat ed count Platele 133 144 - x10(3)/ Low No April 04 ts 423 mcL informa 2015 [#/volu tion in 9:02 AM me] in source Blood data by Automat ed count MPV 10.2 6.8 - fL No No April 04 10.8 informa informa 2016 tion in tion in 9:02 AM source source data data Prealbumin Observa Value Referen Units Interpr Notes Date tion ce etation Range Prealbu 15.6 20.0 - mg/dL Low No March 28 min 40.0 informa 2016 tion in 9:01 AM source data Hemogram Observa Value Referen Units Interpr Notes Date tion ce etation Range LEUKOCY 5.6 4.0 - x10(3)/ No No March 28 MARIKA 11.0 mcL informa informa 2016 tion in tion in 8:27 AM source source data data Erythro 5.12 4.30 - x10(6)/ No No March 28 cytes 5.81 mcL informa informa 2016 [#/volu tion in tion in 8:27 AM me] in source source Blood data data by Automat ed count Hemoglo 14.9 13.5 - gm/dL No March 28 bin 17.1 informa informa 2016 [Mass/v tion in tion in 8:27 AM olume] source source in data data Blood Hematoc 45.1 38.9 - % No No March 28 rit 51.6 informa informa 2016 [Volume tion in tion in 8:27 AM source source Fractio data data n] of Blood by Automat ed count Erythro 88.1 82.5 - fL No No March 28 cyte 99.8 informa informa 2016 mean tion in tion in 8:27 AM corpusc source source ular data data volume [Entiti c volume] by Automat ed count Erythro 29.1 27.0 - pg No No March 28 cyte 34.3 informa informa 2016 mean tion in tion in 8:27 AM corpusc source source ular data data hemoglo bin [Entiti c mass] by Automat ed count Erythro 33.1 32.1 - gm/dL No No March 28 cyte 35.3 informa informa 2016 mean tion in tion in 8:27 AM corpusc source source ular data data hemoglo bin concent ration [Mass/v olume] by Automat ed count Erythro 14.9 11.5 - % No No March 28 cyte 15.0 informa informa 2016 distrib tion in tion in 8:27 AM ution source source width data data [Ratio] by Automat ed count Platele 134 144 - x10(3)/ Low No March 28 ts 423 mcL informa 2016 [#/volu tion in 8:27 AM me] in source Blood data by Automat ed count MPV 10.4 6.8 - fL No No March 28 10.8 informa informa 2016 tion in tion in 8:27 AM source source data data UA Observa Value Referen Units Interpr Notes Date tion ce etation Range UA Lilian No No No No March 28 Color informa informa informa informa 2016 tion in tion in tion in tion in 8:45 AM source source source source data data data data UA Cloudy Clear No Abnorma No March 28 Appear informa l informa 2016 tion in tion in 8:45 AM source source data data UA Negativ Negativ No No No March 28 Glucose e e informa informa informa 2016 tion in tion in tion in 8:45 AM source source source data data data UA Negativ Negativ No No No March 28 Ketones e e informa informa informa 2016 tion in tion in tion in 8:45 AM source source source data data data UA Small Negativ No Abnorma No March 28 Blood e informa l informa 2016 tion in tion in 8:45 AM source source data data UA pH 5.0 4.8 - No No Referen March 28 8.0 informa informa ce 2016 tion in tion in range 8:45 AM source source valid data data for random specime ns only. UA 30 Negativ No Abnorma No March 28 Protein mg/dl e informa l informa 2016 tion in tion in 8:45 AM source source data data UA >=4 <=1 No Abnorma No March 28 Urobili mg/dl mg/dl informa l informa 2016 nogen tion in tion in 8:45 AM source source data data UA Negativ Negativ No No No March 28 Nitrite e e informa informa informa 2016 tion in tion in tion in 8:45 AM source source source data data data UA Leuk Negativ Negativ No No No March 28 Est e e informa informa informa 2016 tion in tion in tion in 8:45 AM source source source data data data UA Spec 1.030 1.001 - No No Referen March 28 Grav 1.035 informa informa ce 2016 tion in tion in range 8:45 AM source source valid data data for random specime ns only. UA WBC 5 0 - 4 /HPF High No March 28 informa 2015 tion in 8:45 AM source data UA RBC 46 0 - 3 /HPF High No March 28 informa 2015 tion in 8:45 AM source data UA 4+ No No No No March 28 Mucous informa informa informa informa 2016 tion in tion in tion in tion in 8:45 AM source source source source data data data data UA Trace No No No No March 28 Amorph informa informa informa informa 2016 tion in tion in tion in tion in 8:45 AM source source source source data data data data UA Trace No No Abnorma No March 28 Bacteri informa informa l informa 2016 a tion in tion in tion in 8:45 AM source source source data data data UA Hyal 5 0 - 2 /LPF High No March 28 Cast informa 2015 tion in 8:45 AM source data UA Gran 5 No /LPF No No March 28 Cast informa informa informa 2016 tion in tion in tion in 8:45 AM source source source data data data Prealbumin Observa Value Referen Units Interpr Notes Date ti ce etation Range Prealbu 17.0 20.0 - mg/dL Low No March 21 min 40.0 informa 2015 tion in 8:43 AM source data Hemogram Observa Value Referen Units Interpr Notes Date ti ce etation Range LEUKOCY 4.8 4.0 - x10(3)/ No March 21 MARIKA 11.0 mcL informa informa 2016 tion in tion in 8:18 AM source source data data Erythro 5.03 4.30 - x10(6)/ No March 21 cytes 5.81 mcL informa informa 2016 [#/volu tion in tion in 8:18 AM me] in source source Blood data data by Automat ed count Hemoglo 14.7 13.5 - gm/dL No March 21 bin 17.1 informa informa 2016 [Mass/v tion in tion in 8:18 AM olume] source source in data data Blood Hematoc 44.3 38.9 - % No March 21 rit 51.6 informa informa 2015 [Volume tion in tion in 8:18 AM source source Fractio data data n] of Blood by Automat ed count Erythro 88.1 82.5 - fL No March 21 cyte 99.8 informa informa 2015 mean tion in tion in 8:18 AM corpusc source source ular data data volume [Entiti c volume] by Automat ed count Erythro 29.3 27.0 - pg No March 21 cyte 34.3 informa informa 2015 mean tion in tion in 8:18 AM corpusc source source ular data data hemoglo bin [Entiti c mass] by Automat ed count Erythro 33.2 32.1 - gm/dL No March 21 cyte 35.3 informa informa 2015 mean tion in tion in 8:18 AM corpusc source source ular data data hemoglo bin concent ration [Mass/v olume] by Automat ed count Erythro 14.5 11.5 - % No March 21 cyte 15.0 informa informa 2016 distrib tion in tion in 8:18 AM ution source source width data data [Ratio] by Automat ed count Platele 103 144 - x10(3)/ Low No March 21 ts 423 [facility] informa 2016 [#/volu tion in 8:18 AM me] in source Blood data by Automat ed count MPV 10.4 6.8 - fL No March 21 10.8 informa informa 2016 tion in tion in 8:18 AM source source data data Hep Prf-Ac Observa Value Referen Units Interpr Notes Date tion ce etation Range SOURCE EXPOSURE Hepatit Negativ Negativ No No No March 19 is B e e informa informa informa 2016 virus tion in tion in tion in 10:59 surface source source source AM Ag data data data [Presen ce] in Serum by Immunoa ssay Hep B Negativ Negativ No No No March 19 Core e e informa informa informa 2016 IgM tion in tion in tion in 10:59 source source source AM data data data Hepatit Negativ Negativ No No No March 19 is A e e informa informa informa 2016 virus tion in tion in tion in 1:08 PM Ab source source source [Units/ data data data volume] in Serum by Radioim munoass ay (JALIL) Hep C Negativ Negativ No No No March 19 Ab e e informa informa informa 2016 tion in tion in tion in 11:00 source source source AM data data data Prealbumin Observa Value Referen Units Interpr Notes Date tion ce etation Range Prealbu 14.1 20.0 - mg/dL Low No March 14 min 40.0 informa 2015 tion in 8:57 AM source data Hemogram Observa Value Referen Units Interpr Notes Date tion ce etation Range LEUKOCY 5.1 4.0 - x10(3)/ No No March 14 MARIKA 11.0 mcL informa informa 2016 tion in tion in 8:32 AM source source data data Erythro 5.19 4.30 - x10(6)/ No No March 14 cytes 5.81 mcL informa informa 2016 [#/volu tion in tion in 8:32 AM me] in source source Blood data data by Automat ed count Hemoglo 15.0 13.5 - gm/dL No No March 14 bin 17.1 informa informa 2016 [Mass/v tion in tion in 8:32 AM olume] source source in data data Blood Hematoc 46.2 38.9 - % No No March 14 rit 51.6 informa informa 2016 [Volume tion in tion in 8:32 AM source source Fractio data data n] of Blood by Automat ed count Erythro 89.1 82.5 - fL No No March 14 cyte 99.8 informa informa 2015 mean tion in tion in 8:32 AM corpusc source source ular data data volume [Entiti c volume] by Automat ed count Erythro 28.9 27.0 - pg No March 14 cyte 34.3 informa informa 2015 mean tion in tion in 8:32 AM corpusc source source ular data data hemoglo bin [Entiti c mass] by Automat ed count Erythro 32.4 32.1 - gm/dL No March 14 cyte 35.3 informa informa 2015 mean tion in tion in 8:32 AM corpusc source source ular data data hemoglo bin concent ration [Mass/v olume] by Automat ed count Erythro 14.3 11.5 - % No March 14 cyte 15.0 informa informa 2016 distrib tion in tion in 8:32 AM ution source source width data data [Ratio] by Automat ed count Platele 113 144 - x10(3)/ Low No March 14 ts 423 mcL informa 2015 [#/volu tion in 8:32 AM me] in source Blood data by Automat ed count MPV 10.6 6.8 - fL No March 14 10.8 informa informa 2016 tion in tion in 8:32 AM source source data data Prealbumin Observa Value Referen Units Interpr Notes Date tion ce etation Range Prealbu 11.9 20.0 - mg/dL Low No Mar 07 min 40.0 informa 2015 tion in 8:53 AM source data Hemogram Observa Value Referen Units Interpr Notes Date tion ce etation Range LEUKOCY 8.5 4.0 - x10(3)/ No No Mar 07 MARIKA 11.0 mcL informa informa 2016 tion in tion in 8:28 AM source source data data Erythro 5.03 4.30 - x10(6)/ No No Mar 07 cytes 5.81 mcL informa informa 2016 [#/volu tion in tion in 8:28 AM me] in source source Blood data data by Automat ed count Hemoglo 14.7 13.5 - gm/dL No No Mar 07 bin 17.1 informa informa 2016 [Mass/v tion in tion in 8:28 AM olume] source source in data data Blood Hematoc 44.2 38.9 - % No No Mar 07 rit 51.6 informa informa 2016 [Volume tion in tion in 8:28 AM source source Fractio data data n] of Blood by Automat ed count Erythro 87.9 82.5 - fL No No Mar 07 cyte 99.8 informa informa 2016 mean tion in tion in 8:28 AM corpusc source source ular data data volume [Entiti c volume] by Automat ed count Erythro 29.3 27.0 - pg No No Mar 07 cyte 34.3 informa informa 2016 mean tion in tion in 8:28 AM corpusc source source ular data data hemoglo bin [Entiti c mass] by Automat ed count Erythro 33.3 32.1 - gm/dL No No Mar 07 cyte 35.3 informa informa 2016 mean tion in tion in 8:28 AM corpusc source source ular data data hemoglo bin concent ration [Mass/v olume] by Automat ed count Erythro 14.2 11.5 - % No No Mar 07 cyte 15.0 informa informa 2016 distrib tion in tion in 8:28 AM ution source source width data data [Ratio] by Automat ed count Platele 133 144 - x10(3)/ Low No Mar 07 ts 423 mcL informa 2016 [#/volu tion in 8:28 AM me] in source Blood data by Automat ed count MPV 11.2 6.8 - fL High No Mar 07 10.8 informa 2016 tion in 8:28 AM source data
--- OUTSIDE RECORDS SUMMARY | 2017-09-17 16:15 | External Medical Summary Rpt ---
[...] x10(3)/ Low No March 21 ts 423 [facility] informa 2016 [#/volu tion in 8:18 AM [...] 4.0 - x10(3)/ No No March 14 MARIAK 11.0 mcL informa informa 2016 tion in [...]
[2017-09-17 16:20] LABS: HEMOGLOBIN 11.4 g/dL (14.1-18.0)
[2017-09-17 16:46] LABS: BUN 11 mg/dL (7-18); GFR (ESTIMATED) 112 ML/MIN (>60)
[2017-09-17] MEDS ORDERED: GENERLAC10 GM/15 M PO (17:06)
--- NOTE | 2017-09-17 17:07 | Emergency Room Report ---
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 Clinical Suspician of Infection? Mental Status: Sepsis Risk: Have you (or family members/close friends) recently traveled outside the [place]? If Yes, where/when: Have you had exposure to infectious disease within the past month? TB? Other? 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 As he has a history of alcoholic cirrhosis. He has history OF aspiration and is on thickened liquid diet. Today he did not respond to the nursing nursing staff for 20 minutes surgery Center in for evaluation. In the ER he reported that he was able to hear them but he did not want to respond to the nursing staff. In fact he wanted to be left alone. He is in no cardiopulmonary distress. I spoke with his confirming that he is DNR. Source patient, RN notes reviewed, family, old records Exam Limitations clinical condition ALLERGIES Coded Allergies: moxifloxacin (From Avelox) (Severe, TONGUE AND FACE SWELLED 09/17/17) Home Medications Active Scripts CLONIDINE HYDROCHLORIDE (Catapres 0.2MG) 0.2 MG PO BID #30 Prov: 09/26/13 Clonidine Hydrochloride (Clonidine 0.2MG Tab) 0.2 MG PO BID 30 Days Prov: 09/26/13 Losartan Potassium (Losartan 100MG) 100 MG PO DAILY #30 TAB Prov: 09/26/13 Reported Medications Omeprazole (Omeprazole 20MG) 20 MG PO BID TAMSULOSIN HCL (Tamsulosin HCl) 0.4 MG PO QHS #30 CAP Simvastatin (Simvastatin 40MG Tab) 40 MG PO QHS INSULIN GLARGINE (Lantus 3ML Solostar Pen) 28 UNITS SC QHS Desvenlafaxine Succinate (Pristiq ER) 100 MG PO DAILY History Medical History General CAD? No Angina: Yes AK: No Hypertension? Yes Hyperlipidemia? Yes CHF? No DVT? No PE? No COPD? Yes Asthma? No Anemia? Yes GERD? Yes Gastric ulcers? No GI Bleed? No Hernia? No Thyroid Problems? No Hypothyroidism? No CVA? No Seizures? No Diabetes? Yes Insulin Dependent: Yes Insulin Pump: No Home FSBS? Yes Renal Insuffiency? No End Stage Renal Disease? No UTI? Yes Stones? Yes BPH? No GB Disease: No Nephritic Syndrome? No Asplenia? No Hepatitis? No Sickle Cell Disease? No Arthritis? Yes Migraines? No Cataracts? Yes Glaucoma? Yes MRSA? No HIV? No TB? No Anxiety? No Depression? Yes Cancer? Yes Site: ESOPHAGEAL Immunization Hx DT/Tetanus Unknown Flu 2012-14FSN Pneumonia Received In Past Surgical Hx Previous Surgery?Y SHOULDER-RT X 2 SINUS Family History Family Hx Diabetes Yes CAD Yes Hypertension Yes Hyperlipidemia Yes Cancer Yes TB No Social History Smoking Hx Packs/day < 1 Pack Alcohol Alcohol: No Review of Systems All Other Systems Reviewed and Negative Constitutional see HPI Eyes no symptoms reported ENT no symptoms reported. Respiratory no symptoms reported Cardiovascular no symptoms reported Gastrointestinal no symptoms reported Genitourinary no symptoms reported. Musculoskeletal no symptoms reported Skin no symptoms reported Psychiatric/Neurological no symptoms reported (left HEMIPARESTHESIAS), denies see HPI (left HAND PARESTHESIAS) Physical Exam Vital Signs Vital Signs Date Time Temp Pulse Resp B/P Pulse O2 O2 Flow FiO2 Ox Delivery Rate 09/17 1740 98.2 72 18 142/80 98 General Appearance normal appearance, WD/WN Eye Exam - bilateral eye normal exam, bilateral eye PERRL, bilateral eye EOMI Ear, Nose, Throat hearing grossly normal, normal ENT inspection Neck normal inspection, non-tender, supple, full range of motion Respiratory Status Yes: trachea midline, chest symmetrical, non tender chest. No: respiratory distress. Lung Sounds bilateral: normal breath sounds, lungs clear. 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 No Results/Orders Laboratory Tests 09/17/17 1604: Sodium 136, Potassium 4.4, Chloride 104, Carbon Dioxide 29, BUN 11, Creatinine 0.7 L, Estimated GFR (MDRD) 112, Glucose 123 H, Calcium 8.5, Total Bilirubin 0.8, AST 18, ALT 17, Alkaline Phosphatase 119 H, Creatine Kinase 41, CK-MB (CK- 2) Rel Index 2.4, CK and CKMB Interp 1.0, Troponin I < 0.02, Total Protein 6.6, Albumin 1.9 L, Globulin 4.7 H, Albumin/Globulin Ratio 0.4 L, WBC 10.3, RBC 4.54 L, Hgb 11.4 L, Hct 36.5 L, MCV 80.4 L, RDW 14.1, Plt Count 225, MPV 8.6 , Gran % 68.4, Gran # 7.1, Lymphocytes % 15.3, Monocytes % 15.1 H, Eosinophils % 0.7, Basophils % 0.4, Lymphocytes # 1.6, Monocytes # 1.6 H, Eosinophils # 0.1 , Basophils # 0.0, PUBS MCHC 31.2 L, MCH 25.1 L Current Medication Orders Sig/Ramón Start time Last Medication Dose Route Stop Time Status Admin Lactulose 15 GM ONCE ONE 09/17 171 DC PO 09/17 171 Sodium Chloride 1,000 ML .Q1H1M 09/17 171 AC IV 09/17 1815 Sodium Chloride 10 ML PRN PRN 09/17 1715 AC IV 09/18 1707 Sodium Chloride 10 ML PRN PRN 09/17 1615 AC IV 09/18 1604 Orders Procedure Date/time Status ELECTROCARDIOGRAM REQUEST 09/17 160 Active CHEST-PORTABLE 09/17 160 Active IV SALINE LOCK 09/17 160 Active CBC WITH AUTO DIFF 09/17 1606 Complete CARDIAC ENZYMES 09/17 160 Complete CHEM 12 PROFILE 09/17 160 Complete 12 LEAD EKG-BESSON (INITIAL) 09/17 UNK Active Departure Departure Time of Disposition 1701 Disposition DC Home or Self Care(routine) Clinical Impression Primary Impression: Dehydration Secondary Impressions: CVA, old, speech/language deficit, DNR (do not resuscitate), Left hemiplegia, Liver cirrhosis Condition STABLE Referrals Andree Snell MD (Family) Additional Instructions The patietn remianed stable , reciebed IVF , started on lactulose. I discussed with who informed me that he is DNR and no agressive manag,ent is needed. She was agreeable for fluids and lactulose, she will bring him back if he is worse. Discharge Counseling Counseled pt/family regarding diagnosis, test results, medications/RX, home care, follow up needs Prescriptions Current Visit Scripts Lactulose (Generlac) 10 GM PO Q8 #30 ML ED Critical Care Critical Care No at 1800
[2017-09-17 18:58] VITALS: BP 127/60
--- NOTE | 2017-09-18 08:38 | RADIOLOGY REPORT PS360 ---
CHEST-PORTABLE HISTORY: Altered mental status, altered level of consciousness, AMS ORDERING PHYSICIAN: Orestes Wild MD PATIENT AGE: 66 years COMPARISON: 09/23/2013 FINDINGS: The cardiomediastinal silhouette and pulmonary vascularity are within normal limits. Opacification present in the left lower lobe consistent with pneumonia. Remaining lungs are clear... Hyperinflation with attenuation of the peripheral pulmonary vessels consistent with COPD No acute bony abnormalities. IMPRESSION: Left lower lobe pneumonia
== END 2017-09-17 18:34 | disposition home or self-care (01) ==
LOC: ER 15:59
PROVIDERS: Emergency Medicine
DX: E86.0 Dehydration (principal); I69.354 Hemiplegia and hemiparesis following cerebral infarction affecting left non-dominant side; Z72.0 Tobacco use; K70.30 Alcoholic cirrhosis of liver without ascites; Z85.01 Personal history of malignant neoplasm of esophagus; E11.9 Type 2 diabetes mellitus without complications; Z79.4 Long term (current) use of insulin; K21.9 Gastro-esophageal reflux disease without esophagitis; E78.5 Hyperlipidemia, unspecified

== ENCOUNTER 2017-09-19 07:57 | Inpatient (IN) | payer OTHER, MEDICARE, MEDICAID ==
[~2017-09-19] VITALS: Ht 170.2 cm; Wt 73.1 kg
[2017-09-19] VITALS (9 sets, daily range): BP systolic 84–141; BP diastolic 39–61
[~2017-09-19 07:57] MED LIST changes: +GENERLAC10 GM/15 M PO
[2017-09-19] MEDS ORDERED: ELIQUIS5 MG PO ×2 (08:10→10:13)
[2017-09-19 08:12] LABS: HEMOGLOBIN 12.5 g/dL (14.1-18.0); LYMPH # 1.5 K/mm3 (0.7-4.5); LYMPH % 6.8 % (10-50)
--- NOTE | 2017-09-19 08:23 | Emergency Room Report ---
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 N Clinical Suspician of Infection? N Mental Status: 1 - Regular (Normal Baseline) Sepsis Risk:Low Sepsis Risk Have you (or family members/close friends) recently traveled outside the [place]? N If Yes, where/when: Have you had exposure to infectious disease within the past month? N TB? Other? Specify: Mr. Noel is well known to me from previous visit 2 days ago with hx of CVA , left hemiparesis, and aspiration of anything less than thick liquids. He has a hx of liver cirrhosis and alcoholism. His labs were within normal limits but he was not on lactulose and was started on lactulose with plan for follow up with Dr. Snell. He was thirsty and wanted to drink a lot of water. Today, He was brought due to altered mental stauts and low sat of 89%, he sounds congested and he most probably aspirated. Source RN notes reviewed, EMS, half-way records, old records Exam Limitations clinical condition ALLERGIES Coded Allergies: moxifloxacin (From Avelox) (Severe, TONGUE AND FACE SWELLED 09/17/17) Home Medications Active Scripts Lactulose (Generlac) 10 GM PO Q8 #30 ML Prov: 09/17/17 CLONIDINE HYDROCHLORIDE (Catapres 0.2MG) 0.2 MG PO BID #30 Prov: 09/26/13 Clonidine Hydrochloride (Clonidine 0.2MG Tab) 0.2 MG PO BID 30 Days Prov: 09/26/13 Losartan Potassium (Losartan 100MG) 100 MG PO DAILY #30 TAB Prov: 09/26/13 Reported Medications Omeprazole (Omeprazole 20MG) 20 MG PO BID TAMSULOSIN HCL (Tamsulosin HCl) 0.4 MG PO QHS #30 CAP Simvastatin (Simvastatin 40MG Tab) 40 MG PO QHS Apixaban (Eliquis) 5 MG PO BID #20 INSULIN GLARGINE (Lantus 3ML Solostar Pen) 28 UNITS SC QHS Desvenlafaxine Succinate (Pristiq ER) 100 MG PO DAILY History Medical History General CAD? No Angina: Yes [place]: No Hypertension? Yes Hyperlipidemia? Yes CHF? No DVT? No PE? No COPD? Yes Asthma? No Anemia? Yes GERD? Yes Gastric ulcers? No GI Bleed? No Hernia? No Thyroid Problems? No Hypothyroidism? No CVA? No Seizures? No Diabetes? Yes Insulin Dependent: Yes Insulin Pump: No Home FSBS? Yes Renal Insuffiency? No End Stage Renal Disease? No UTI? Yes Stones? Yes BPH? No GB Disease: No Nephritic Syndrome? No Asplenia? No Hepatitis? No Sickle Cell Disease? No Arthritis? Yes Migraines? No Cataracts? Yes Glaucoma? Yes MRSA? No HIV? No TB? No Anxiety? No Depression? Yes Cancer? Yes Site: ESOPHAGEAL Immunization Hx DT/Tetanus Unknown Flu 2012-FSN Pneumonia Received In Past Surgical Hx Previous Surgery?Y SHOULDER-RT X 2 SINUS Family History Family Hx Diabetes Yes CAD Yes Hypertension Yes Hyperlipidemia Yes Cancer Yes TB No Social History Smoking Hx Smoker: Former Smoker Tobacco: No Packs/day < 1 Pack Alcohol Alcohol: No Review of Systems All Other Systems Reviewed and Negative Constitutional see HPI, malaise Eyes no symptoms reported ENT no symptoms reported. Respiratory shortness of breath (congested ) Cardiovascular no symptoms reported Gastrointestinal no symptoms reported Genitourinary no symptoms reported. Musculoskeletal no symptoms reported Skin no symptoms reported Psychiatric/Neurological see HPI, depressed, pre-existing deficit, weakness (lehargic) Physical Exam Vital Signs Vital Signs Date Time Temp Pulse Resp B/P Pulse O2 O2 Flow FiO2 Ox Delivery Rate 09/19 0907 71 22 84/50 95 2 09/19 0800 89 09/19 0757 98.7 84 22 102/56 89 o2 sat increased to 93 by using one liter of oxygen. (Torri SIMON,[facility]) - WBC >12,000 or <4,000 or 10% bands? 2 or more SIRS Criteria Met? B/P:102/56 MAP:71 Creatinine >2.0? UA output<0.5ml/kg/hr for 2 hrs? Platelet count >100,000? Lactate >2.0mmol/1? INR >1.2 or PTT > than 60 sec? Evidence of Organ Dysfunction? Provider documented clinical suspician of infection? N Sepsis Criteria Count: 1 Sepsis Risk: Low Sepsis Risk General Appearance no apparent distress, lethargic Eye Exam - bilateral eye normal exam, bilateral eye PERRL, bilateral eye EOMI Ear, Nose, Throat hearing grossly normal, normal ENT inspection Neck normal inspection, non-tender, supple, full range of motion Respiratory Status Yes: trachea midline, chest symmetrical, non tender chest. No: respiratory distress. Lung Sounds posterior: rhonchi, crackles. left: rhonchi, crackles. right: rhonchi, crackles. 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 he has hard time follwoing comand most likely due to weakness. Skin intact, normal color, warm/dry Lymphatic no adenopathy Medical Decision Making LABS/Meds/Orders Pt receiving controlled substance in ED? No Results/Orders Laboratory Tests 09/19/17 0819: Lactic Acid 1.5 09/19/17 0755: Sodium 135 L, Potassium 4.3, Chloride 104, Carbon Dioxide 25, BUN 12, Creatinine 0.7 L, Estimated Creat Clear 104, Estimated GFR (MDRD) 112, Glucose 158 H, Calcium 8.2 L, Total Bilirubin 1.4 H, AST 13 L, ALT 13, Alkaline Phosphatase 108, Creatine Kinase 27 L, CK-MB (CK-2) Rel Index 1.9, CK and CKMB Interp < 0.5, Troponin I < 0.02, Total Protein 6.3 L, Albumin 1.7 L, Globulin 4.6 H, Albumin/Globulin Ratio 0.4 L, WBC 21.5 *H, RBC 5.06, Hgb 12.5 L, Hct 40.0 L, MCV 79.1 L, RDW 14.2, Plt Count 313, MPV 8.9, Gran % 87.0 H, Gran # 18.7 H, Total Counted 100, Lymphocytes % 6.8 L, Monocytes % 6.0, Eosinophils % 0.1, Basophils % 0.1, Neutrophils 93 H, Lymphocytes (Manual) 4 L, Lymphocytes # 1.5, Monocytes (Manual) 3, Monocytes # 1.3 H, Eosinophils # 0.0, Basophils # 0.0, Platelet Estimate NORMAL, Hypochromasia 2+, Kerrick Cells 2+, PUBS MCHC 31.3 L, MCH 24.7 L Current Medication Orders Sig/Ramón Start time Last Medication Dose Route Stop Time Status Admin Sodium Chloride 1,000 ML .Q1H1M 09/19 0915 AC 09/19 IV 09/19 1015 0910 Sodium Chloride 10 ML PRN PRN 09/19 0915 AC IV 09/20 0910 Sodium Chloride 1,000 ML .STK-MED ONE 09/19 0910 DC IV Sodium Chloride 50 ML .STK-MED ONE 09/19 0843 DC IV Piperacillin Sod/ 0 .STK-MED ONE 09/19 0842 DC Tazobactam Sod .ROUTE Piperacillin Sod/ 3.375 GM ONCE ONE 09/19 0830 DC 09/19 Tazobactam Sod IV 09/19 0859 0905 Sodium Chloride 50 ML Sodium Chloride 10 ML PRN PRN 09/19 0815 AC IV 09/20 0801 Orders Procedure Date/time Status DIET-NOTHING BY MOUTH 09/19 L Active OXYGEN PER NURSE 09/19 0907 Active Decision to admit 09/19 09 Active CULTURE, BLOOD 09/19 0826 Active LACTIC ACID 09/[address] HEAD W/O CONTRAST 09/19 0816 Active ELECTROCARDIOGRAM REQUEST 09/[address] HEAD REQ 09/19 08 Complete CHEST-PORTABLE 09/19 08 Active IV SALINE LOCK 09/19 08 Active CBC WITH AUTO DIFF 09/19 08 Complete CARDIAC ENZYMES 09/19 08 Complete CHEM 12 PROFILE 09/19 08 Complete DIFFERENTIAL-WBC 09/19 0755 Complete CM/EKG CM/EKG EKG rate, NSR, rhythm, no evid. of ischemic chgs, no ectopy, normal QRS, normal HI, normal EKG Comments NSR 80 per minute with no acute findings. XRAY/CT/US XRAY/CT/US XRAY chest XR interpretation by reviewed by me Xray Results positive for left lung infiltrates. Departure Departure Time of Disposition 901 Disposition Still a Patient Clinical Impression Primary Impression: Aspiration pneumonia Secondary Impressions: CVA, old, aphasia, Dysphagia, History of alcoholism, Liver cirrhosis, Pneumonia involving left lung Condition STABLE Referrals Channing SIMON,Andree Coon (Family) Additional Instructions I called His and she decided that this admisson to make him a full code. She is aware that he has muti system disesase and possibility of a poor outcome. She is out of town and will be back tomorrow to check on him. I called Dr Snell who agreed admit for pneumonia, due to his high risk being aspiration, half-way and low albumin will start him on zosyn and vancomycin untill culture results. PROR TO ADMISSIN HIS BP DECREASED TO 80/60 WAS GIVEN IVF BOLUS 200 L WITH INCREASE TO 97/50 MMHG HR 67/MIN, IN NO RESP DISTRESS SAT 98% ON 2 L NC. HE WAS ADITTED IN A HEMODYNAMICALLY AND NEUROLOGICALLY STABLE CONDITION. DR. WILD Discharge Counseling Counseled pt/family regarding diagnosis (discussed with the ), medications/RX ED Critical Care Critical Care No If Critical Care minutes are documented, the time involved in the performance of seperately reportable procedures was not counted toward critical care time documented. I directly delivered medical care to this critically ill and/or injured patient. Timely evaluation and treatment was necessary to address the significant organ system(s) dysfunction present in this patient. at 0934
--- NOTE | 2017-09-19 08:23 | Emergency Room Report ---
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 N Clinical Suspician of Infection? N Mental Status: 1 - Regular (Normal Baseline) Sepsis Risk:Low Sepsis Risk Have you (or family members/close friends) recently traveled outside the [place]? N If Yes, where/when: Have you had exposure to infectious disease within the past month? N TB? Other? Specify: Mr. Noel is well known to me from previous visit 2 days ago with hx of CVA , left hemiparesis, and aspiration of anything less than thick liquids. He has a hx of liver cirrhosis and alcoholism. His labs were within normal limits but he was not on lactulose and was started on lactulose with plan for follow up with Dr. Snell. He was thirsty and wanted to drink a lot of water. Today, He was brought due to altered mental stauts and low sat of 89%, he sounds congested and he most probably aspirated. Source RN notes reviewed, EMS, retirement records, old records Exam Limitations clinical condition ALLERGIES Coded Allergies: moxifloxacin (From Avelox) (Severe, TONGUE AND FACE SWELLED 09/17/17) Home Medications Active Scripts Lactulose (Generlac) 10 GM PO Q8 #30 ML Prov: 09/17/17 CLONIDINE HYDROCHLORIDE (Catapres 0.2MG) 0.2 MG PO BID #30 Prov: 09/26/13 Clonidine Hydrochloride (Clonidine 0.2MG Tab) 0.2 MG PO BID 30 Days Prov: 09/26/13 Losartan Potassium (Losartan 100MG) 100 MG PO DAILY #30 TAB Prov: 09/26/13 Reported Medications Omeprazole (Omeprazole 20MG) 20 MG PO BID TAMSULOSIN HCL (Tamsulosin HCl) 0.4 MG PO QHS #30 CAP Simvastatin (Simvastatin 40MG Tab) 40 MG PO QHS Apixaban (Eliquis) 5 MG PO BID #20 INSULIN GLARGINE (Lantus 3ML Solostar Pen) 28 UNITS SC QHS Desvenlafaxine Succinate (Pristiq ER) 100 MG PO DAILY History Medical History General CAD? No Angina: Yes [place]: No Hypertension? Yes Hyperlipidemia? Yes CHF? No DVT? No PE? No COPD? Yes Asthma? No Anemia? Yes GERD? Yes Gastric ulcers? No GI Bleed? No Hernia? No Thyroid Problems? No Hypothyroidism? No CVA? No Seizures? No Diabetes? Yes Insulin Dependent: Yes Insulin Pump: No Home FSBS? Yes Renal Insuffiency? No End Stage Renal Disease? No UTI? Yes Stones? Yes BPH? No GB Disease: No Nephritic Syndrome? No Asplenia? No Hepatitis? No Sickle Cell Disease? No Arthritis? Yes Migraines? No Cataracts? Yes Glaucoma? Yes MRSA? No HIV? No TB? No Anxiety? No Depression? Yes Cancer? Yes Site: ESOPHAGEAL Immunization Hx DT/Tetanus Unknown Flu 2012-FSN Pneumonia Received In Past Surgical Hx Previous Surgery?Y SHOULDER-RT X 2 SINUS Family History Family Hx Diabetes Yes CAD Yes Hypertension Yes Hyperlipidemia Yes Cancer Yes TB No Social History Smoking Hx Smoker: Former Smoker Tobacco: No Packs/day < 1 Pack Alcohol Alcohol: No Review of Systems All Other Systems Reviewed and Negative Constitutional see HPI, malaise Eyes no symptoms reported ENT no symptoms reported. Respiratory shortness of breath (congested ) Cardiovascular no symptoms reported Gastrointestinal no symptoms reported Genitourinary no symptoms reported. Musculoskeletal no symptoms reported Skin no symptoms reported Psychiatric/Neurological see HPI, depressed, pre-existing deficit, weakness (lehargic) Physical Exam Vital Signs Vital Signs Date Time Temp Pulse Resp B/P Pulse O2 O2 Flow FiO2 Ox Delivery Rate 09/19 0907 71 22 84/50 95 2 09/19 0800 89 09/19 0757 98.7 84 22 102/56 89 o2 sat increased to 93 by using one liter of oxygen. (Torri SIMON,[facility]) - WBC >12,000 or <4,000 or 10% bands? 2 or more SIRS Criteria Met? B/P:102/56 MAP:71 Creatinine >2.0? UA output<0.5ml/kg/hr for 2 hrs? Platelet count >100,000? Lactate >2.0mmol/1? INR >1.2 or PTT > than 60 sec? Evidence of Organ Dysfunction? Provider documented clinical suspician of infection? N Sepsis Criteria Count: 1 Sepsis Risk: Low Sepsis Risk General Appearance no apparent distress, lethargic Eye Exam - bilateral eye normal exam, bilateral eye PERRL, bilateral eye EOMI Ear, Nose, Throat hearing grossly normal, normal ENT inspection Neck normal inspection, non-tender, supple, full range of motion Respiratory Status Yes: trachea midline, chest symmetrical, non tender chest. No: respiratory distress. Lung Sounds posterior: rhonchi, crackles. left: rhonchi, crackles. right: rhonchi, crackles. 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 he has hard time follwoing comand most likely due to weakness. Skin intact, normal color, warm/dry Lymphatic no adenopathy Medical Decision Making LABS/Meds/Orders Pt receiving controlled substance in ED? No Results/Orders Laboratory Tests 09/19/17 0819: Lactic Acid 1.5 09/19/17 0755: Sodium 135 L, Potassium 4.3, Chloride 104, Carbon Dioxide 25, BUN 12, Creatinine 0.7 L, Estimated Creat Clear 104, Estimated GFR (MDRD) 112, Glucose 158 H, Calcium 8.2 L, Total Bilirubin 1.4 H, AST 13 L, ALT 13, Alkaline Phosphatase 108, Creatine Kinase 27 L, CK-MB (CK-2) Rel Index 1.9, CK and CKMB Interp < 0.5, Troponin I < 0.02, Total Protein 6.3 L, Albumin 1.7 L, Globulin 4.6 H, Albumin/Globulin Ratio 0.4 L, WBC 21.5 *H, RBC 5.06, Hgb 12.5 L, Hct 40.0 L, MCV 79.1 L, RDW 14.2, Plt Count 313, MPV 8.9, Gran % 87.0 H, Gran # 18.7 H, Total Counted 100, Lymphocytes % 6.8 L, Monocytes % 6.0, Eosinophils % 0.1, Basophils % 0.1, Neutrophils 93 H, Lymphocytes (Manual) 4 L, Lymphocytes # 1.5, Monocytes (Manual) 3, Monocytes # 1.3 H, Eosinophils # 0.0, Basophils # 0.0, Platelet Estimate NORMAL, Hypochromasia 2+, Paron Cells 2+, PUBS MCHC 31.3 L, MCH 24.7 L Current Medication Orders Sig/Ramón Start time Last Medication Dose Route Stop Time Status Admin Sodium Chloride 1,000 ML .Q1H1M 09/19 0915 AC 09/19 IV 09/19 1015 0910 Sodium Chloride 10 ML PRN PRN 09/19 0915 AC IV 09/20 0910 Sodium Chloride 1,000 ML .STK-MED ONE 09/19 0910 DC IV Sodium Chloride 50 ML .STK-MED ONE 09/19 0843 DC IV Piperacillin Sod/ 0 .STK-MED ONE 09/19 0842 DC Tazobactam Sod .ROUTE Piperacillin Sod/ 3.375 GM ONCE ONE 09/19 0830 DC 09/19 Tazobactam Sod IV 09/19 0859 0905 Sodium Chloride 50 ML Sodium Chloride 10 ML PRN PRN 09/19 0815 AC IV 09/20 0801 Orders Procedure Date/time Status DIET-NOTHING BY MOUTH 09/19 L Active OXYGEN PER NURSE 09/19 0907 Active Decision to admit 09/19 09 Active CULTURE, BLOOD 09/19 0826 Active LACTIC ACID 09/[address] HEAD W/O CONTRAST 09/19 0816 Active ELECTROCARDIOGRAM REQUEST 09/[address] HEAD REQ 09/19 08 Complete CHEST-PORTABLE 09/19 08 Active IV SALINE LOCK 09/19 08 Active CBC WITH AUTO DIFF 09/19 08 Complete CARDIAC ENZYMES 09/19 08 Complete CHEM 12 PROFILE 09/19 08 Complete DIFFERENTIAL-WBC 09/19 0755 Complete CM/EKG CM/EKG EKG rate, NSR, rhythm, no evid. of ischemic chgs, no ectopy, normal QRS, normal MS, normal EKG Comments NSR 80 per minute with no acute findings. XRAY/CT/US XRAY/CT/US XRAY chest XR interpretation by reviewed by me Xray Results positive for left lung infiltrates. Departure Departure Time of Disposition 901 Disposition Still a Patient Clinical Impression Primary Impression: Aspiration pneumonia Secondary Impressions: CVA, old, aphasia, Dysphagia, History of alcoholism, Liver cirrhosis, Pneumonia involving left lung Condition STABLE Referrals Channing SIMON,Andree Coon (Family) Additional Instructions I called His and she decided that this admisson to make him a full code. She is aware that he has muti system disesase and possibility of a poor outcome. She is out of town and will be back tomorrow to check on him. I called Dr Snell who agreed admit for pneumonia, due to his high risk being aspiration, retirement and low albumin will start him on zosyn and vancomycin untill culture results. PROR TO ADMISSIN HIS BP DECREASED TO 80/60 WAS GIVEN IVF BOLUS 200 L WITH INCREASE TO 97/50 MMHG HR 67/MIN, IN NO RESP DISTRESS SAT 98% ON 2 L NC. HE WAS ADITTED IN A HEMODYNAMICALLY AND NEUROLOGICALLY STABLE CONDITION. DR. WILD Discharge Counseling Counseled pt/family regarding diagnosis (discussed with the ), medications/RX ED Critical Care Critical Care No If Critical Care minutes are documented, the time involved in the performance of seperately reportable procedures was not counted toward critical care time documented. I directly delivered medical care to this critically ill and/or injured patient. Timely evaluation and treatment was necessary to address the significant organ system(s) dysfunction present in this patient. at 0934
[2017-09-19 08:36] LABS: BUN 12 mg/dL (7-18)
[2017-09-19 08:38] LABS: GFR (ESTIMATED) 112 ML/MIN (>60)
[2017-09-19 08:54] LABS: NEUTROPHILS 93 % (42-76)
--- OUTSIDE RECORDS SUMMARY | 2017-09-19 09:22 | External Medical Summary Rpt | CCD ---
Author Author , FARIHA FRIED Address Unknown Phone [email or web address] Care Team Providers Care Tire Tester Name Role Phone Sondra DENNIS, Unavailable Unavailable Sondra Drew APRN, Unavailable Unavailable Lise Snell MD, Unavailable Unavailable Andree Snell MD Purpose Continuity of Care Document - 09-12-2013 through 2016 Problems Code Diagnosis DOS Provider Status [id number] Alcohol [place] abuse [facility] 276.8 Hypokalemia [facility] 285.9 Anemia [facility] 287.5 Acquired [place] thrombocyto [facility] [id number] Fever [facility] 401.9 Hypertensiv [place] e urgency [facility] [id number] Diabetes [place] mellitus [place] type 2 [facility] [id number] Active [facility] 571.2 Alcoholic [place] cirrhosis [facility] 584.9 Acute renal [place] failure [facility] 784.7 Epistaxis [facility] 787.02 Nausea [facility] 790.92 Coagulation [place] /bleeding [facility] abnormal [id number] Chronic [facility] Allergies, Adverse Reactions, Alerts Type Allergy to [...] Order Detail nces retati t Range on Comprehensive metabolic panel (09-17-2017 16:04) Protein = 6.6 6.4-8.2 complet total 017 gm/dL ed ser/rosalino 16:04 s ALT = 17 12-78 complet (SGPT) 017 U/L ed ser/rosalino 16:04 s Serum = 18 15-37 complet or 017 U/L ed plasma 16:04 asparta te aminotr ansfera Serum = 136 136-145 complet sodium 017 mmoL/L ed measure 16:04 ment Serum = 4.4 3.5-5.1 complet potassi 017 mmoL/L ed um 16:04 measure ment Serum = 123 74-106 complet or 017 mg/dL ed plasma 16:04 glucose measure ment (mas Serum = 4.7 1.3-3.2 complet globuli 017 gm/dL ed n 16:04 measure ment (mass/v olume) Estimat = 112 >60 complet ed 017 ML/MIN ed glomeru 16:04 lar filtrat ion rate (GF Comment: REFERENCE RANGE: >60 ML/MIN/1.73 SQUARE METERS Comment: If this patient is -Mauritanian, then multiply the Comment: result by 1.210. Serum = 0.7 0.70-1. complet or 017 mg/dL 30 ed plasma 16:04 creatin ine measure ment ( Carbon = 29 21.0-32 complet dioxide 017 mmoL/L .0 ed 16:04 measure ment Serum = 104 98-107 complet or 017 mmoL/L ed plasma 16:04 chlorid e measure ment (mo Serum = 8.5 8.5-10. complet or 017 mg/dL 1 ed plasma 16:04 calcium measure ment (mas Serum = 11 7-18 complet or 017 mg/dL ed plasma 16:04 urea nitroge n measure men Serum = 0.8 0.2-1.0 complet or 017 mg/dL ed plasma 16:04 total bilirub in measure m Serum = 119 46-116 complet or 017 U/L ed plasma 16:04 alkalin e phospha tase claus Serum = 1.9 3.4-5.0 complet or 017 gm/dL ed plasma 16:04 albumin measure ment (mas Serum = 0.4 1.1-1.8 complet or 017 ed plasma 16:04 albumin /globul in mass ra Cardiac enzymes (09-17-2017 16:04) Serum < 0.02 0.00-0. complet or 017 ng/mL 06 ed plasma 16:04 troponi n i.cardi ac measu Serum = 41 39-308 complet or 017 U/L ed plasma 16:04 creatin e kinase measure m Serum = 1.0 0.0-3.6 complet or 017 ng/mL ed plasma 16:04 creatin e kinase MB measu Serum = 2.4 0-4.0 complet or 017 U/L ed plasma 16:04 creatin e kinase MB (CK-M CBC w auto diff (09-17-2017 16:04) Blood = 225 142-424 complet platele 017 K/mm3 ed t count 16:04 Automat = 8.6 7.4-10. complet ed 017 fl 4 ed blood 16:04 platele t mean volume claus [place] % = 15.1 1.7-9.3 complet 017 % ed 16:04 Absolut = 1.6 0.1-1.0 complet e 017 K/mm3 ed monocyt 16:04 e count Automat = 80.4 82.2-97 complet ed 017 fl .8 ed erythro 16:04 cyte mean corpusc ular v Automat = 31.2 31.8-35 complet ed 017 g/dl .4 ed erythro 16:04 cyte mean corpusc ular h Mean = 25.1 27-31.2 complet corpusc 017 pg ed ular 16:04 hemoglo bin (MCH) determ Lymphoc = 15.3 10-50 complet yte 017 % ed count, 16:04 blood, automat ed Absolut = 1.6 0.7-4.5 complet e 017 K/mm3 ed lymphoc 16:04 yte count Blood = 11.4 14.1-18 complet hemoglo 017 g/dL .0 ed bin 16:04 measure ment (mass/v olum Blood = 36.5 42.0-52 complet hematoc 017 % .0 ed rit 16:04 (volume fractio n) Granulo = 68.4 37.0-80 complet cyte 017 % .0 ed percent 16:04 age Blood = 7.1 1.3-8.0 complet granulo 017 K/mm3 ed cytes 16:04 automat ed count (numb Automat = 0.7 % 0.1-12. complet ed 017 0 ed blood 16:04 eosinop hils/10 0 leukocy t Automat = 0.1 0.0-0.4 complet ed 017 K/mm3 ed blood 16:04 eosinop hil count Baso % = 0.4 % 0.1-2.0 complet 017 ed 16:04 Automat = 0.0 0-0.2 complet ed 017 K/MM3 ed blood 16:04 basophi l count (count/ vo Blood = 10.3 4.8-10. complet leukocy 017 K/MM3 8 ed zuleika 16:04 count (number /volume ) Automat = 14.1 11.5-17 complet ed 017 % .5 ed erythro 16:04 cyte distrib ution width Red = 4.54 4.6-6.2 complet blood 017 M/mm3 ed cell 16:04 count Glucose [facility] (09-26-2013 06:39) Glucose 09-26- 145 70-110 complet BldC 013 mg/dl ed Glucomt 06:39 r-[facility] BASIC METABOLIC PANEL (09-26-2013 06:20) Glucose 09-26- 137 74-106 complet 013 mg/dL ed Bld-mCn 06:20 c BUN 13 7-18 complet Bld-mCn 013 mg/dL ed c 06:20 Creat 1.1 0.8-1.3 complet SerPl-m 013 mg/dL ed Cnc 06:20 ESTIMAT 94 50-200 complet ED 013 ML/MIN ed CREATIN 06:20 INE CLEARAN CE GFR 67 Greater complet (ESTIMA 013 ML/MIN than [...] K/MM3 ed Bld 06:20 Auto Glucose BldC [facility] (09-25-2013 20:10) Glucose 11-17-2 137 70-110 complet BldC 013 mg/dl ed Glucomt 20:10 r-[facility] Glucose dC [facility]tr[facility] (09-25-2013 17:11) Glucose 11-17-2 129 70-110 complet BldC 013 mg/dl ed Glucomt 17:11 r-[facility] Glucose BldC [facility] (09-25-2013 12:35) Glucose 11-17-2 149 70-110 complet BldC 013 mg/dl ed Glucomt 12:35 r-[facility] Glucose BldC [facility] (09-25-2013 06:43) Glucose 11-17-2 155 70-110 complet BldC 013 mg/dl ed Glucomt 06:43 r-[facility] BASIC METABOLIC PANEL (09-25-2013 06:10) Glucose 11-17-2 147 74-106 complet 013 mg/dL ed Bld-mCn 06:10 c BUN 11-17-2 24 7-18 complet Bld-mCn 013 mg/dL ed c 06:10 Creat 11-17-2 1.7 0.8-1.3 complet SerPl-m 013 mg/dL ed Cnc 06:10 ESTIMAT 11-17-2 61 50-200 complet ED 013 ML/MIN ed CREATIN 06:10 INE CLEARAN CE GFR 11-17-2 41 Greater complet (ESTIMA 013 ML/MIN than ed ELOY) 06:10 60 Sodium 11-17-2 141 136-145 complet SerPl-s 013 mmoL/L ed Cnc 06:10 Potassi 11-17-2 3.5 3.5-5.1 complet um 013 mmoL/L ed SerPl-s 06:10 Cnc Chlorid 11-17-2 104 98-107 complet e 013 mmoL/L ed SerPl-s 06:10 Cnc CO2 11-17-2 25 21.0-32 complet SerPl-s 013 mmoL/L .0 ed Cnc 06:10 Calcium 11-17-2 8.5 8.5-10. complet 013 mg/dL 1 ed SerPl-m 06:10 Cnc CBC with AUTO DIFF (09-25-2013 06:10) WBC # 11-17-2 13.7 4.8-10. complet Bld 013 K/MM3 8 ed Auto 06:10 RBC # 11-17-2 4.02 4.6-6.2 complet Bld 013 M/mm3 ed Auto 06:10 Hgb 11-17-2 11.2 14.1-18 complet Bld-mCn 013 g/dL .0 ed c 06:10 Hct Fr 11-17-2 33.3 % 42.0-52 complet Bld 013 .0 [...] 013 K/MM3 ed Bld 06:10 Auto Glucose dC [facility] (09-24-2013 21:52) Glucose 16-2 102 70-110 complet BldC 013 mg/dl ed Glucomt 21:52 r-[facility] Glucose dC [facility]tr[facility] (09-24-2013 17:03) Glucose 11-16-2 99 70-110 complet BldC 013 mg/dl ed Glucomt 17:03 r-[facility] Glucose dC [facility] (09-24-2013 12:08) Glucose 11-16-2 104 70-110 complet BldC 013 mg/dl ed Glucomt 12:08 r-[facility] Glucose dC [facility] (09-24-2013 06:37) Glucose 11-16-2 126 70-110 complet BldC 013 mg/dl ed Glucomt 06:37 r-[facility] BASIC METABOLIC PANEL (09-24-2013 06:15) Glucose 11-16-2 114 74-106 complet 013 mg/dL ed Bld-mCn 06:15 c BUN 09-24- 42 7-18 complet Bld-mCn 013 mg/dL ed c 06:15 Creat 09-24-2 2.6 0.8-1.3 complet SerPl-m 013 mg/dL ed Cnc 06:15 ESTIMAT 09-24- 40 50-200 complet ED 013 ML/MIN ed CREATIN 06:15 INE CLEARAN CE GFR 25 Greater complet (ESTIMA 013 ML/MIN than ed ELOY) 06:15 60 Sodium 09-24- 142 136-145 complet SerPl-s 013 mmoL/L ed Cnc 06:15 Potassi 3.2 3.5-5.1 complet um 013 mmoL/L ed SerPl-s 06:15 Cnc Chlorid 105 98-107 complet e 013 mmoL/L ed SerPl-s 06:15 Cnc CO2 28 21.0-32 complet SerPl-s 013 mmoL/L .0 ed Cnc 06:15 Calcium 8.0 8.5-10. complet 013 mg/dL 1 ed SerPl-m 06:15 Cnc Vit B12 Ser-mCnc (09-24-2013 06:15) Vit B12 175 200-110 complet 013 pg/mL 0 ed Ser-mCn 06:15 c Folate SerPl-mCnc (09-24-2013 06:15) Folate 3.8 () complet SerPl-m 013 ng/mL ed Cnc 06:15 Ferritin SerPl-mCnc (09-24-2013 06:15) Ferriti 113 8-388 complet n 013 ng/mL ed SerPl-m 06:15 Cnc URINALYSIS/COMPLETE (09-23-2013 20:20) URINE 09-23-2 YELLOW YELLOW complet COLOR 013 ed 20:20 URINE 09-23- CLEAR CLEAR complet APPEARA 013 ed NCE 20:20 URINE 09-23-2 NEGATIV NEG complet GLUCOSE 013 E ed - 20:20 DIPSTIC K URINE 09-23- NEGATIV NEG complet BILIRUB 013 E ed IN - 20:20 DIPSTIC K URINE 09-23-2 NEGATIV NEG complet KETONE 013 E mg/dL ed 20:20 URINE 09-23-2 1.015 1.005-1 complet SPECIFI 013 UNK .030 ed C 20:20 GRAVITY URINE 09-23-2 NEGATIV NEG complet BLOOD 013 E ed 20:20 URINE 09-23-2 6.0 UNK 5.0-8.5 complet PH 013 ed 20:20 URINE 15-2 NEGATIV NEG complet PROTEIN 013 E mg/dL ed - 20:20 DIPSTIC K URINE 09-23-2 0.2 NEG complet UROBILI 013 E.U./dL ed NOGEN - 20:20 DIPSTIC K URINE 09-23-2 NEGATIV NEG complet NITRATE 013 E ed - 20:20 DIPSTIC K URINE 09-23-2 NEGATIV NEG complet LEUK 013 E ed ESTERAS 20:20 E URINE 09-23-2 OCC 0 complet RBC 013 rbc/hpf ed 20:20 URINE 09-23-2 OCC OCC complet SQUAMOU 013 #/hpf ed S CELLS 20:20 BASIC METABOLIC PANEL (09-23-2013 19:43) Glucose 09-23- 121 74-106 complet 013 mg/dL ed Bld-mCn 19:43 c BUN 09-23- 43 7-18 complet Bld-mCn 013 mg/dL ed c 19:43 Creat 09-23-2 3.2 0.8-1.3 complet SerPl-m 013 mg/dL ed Cnc 19:43 Creat 09-23- 31 50-200 complet Cl 013 ML/MIN ed predict 19:43 ed SerPl C-G-vRa te GFR 20 Greater complet (ESTIMA 013 ML/MIN than ed ELOY) 19:43 60 Sodium 09-23- 139 136-145 complet SerPl-s 013 mmoL/L ed Cnc 19:43 Potassi 09-23-2 3.1 3.5-5.1 complet um 013 mmoL/L ed SerPl-s 19:43 Cnc Chlorid 09-23- 101 98-107 complet e 013 mmoL/L ed SerPl-s 19:43 Cnc CO2 09-23- 23 21.0-32 complet SerPl-s 013 mmoL/L .0 ed Cnc 19:43 Calcium 09-23- 8.1 8.5-10. complet 013 mg/dL 1 ed [...] g/dL .0 ed c 06:10 Hct Fr 05-2 36.3 % 42.0-52 complet Bld 013 .0 ed 06:10 MCV RBC 11-05-2 82.6 fL 82.2-97 complet 013 .8 ed 06:10 MCH RBC 11-05-2 25.5 pg 27-31.2 complet Qn 013 ed Auto 06:10 MEAN 11-05-2 30.9 31.8-35 complet CORPUSC 013 g/dl .4 ed ULAR 06:10 HGB CONC RDW RBC 11-05-2 16.2 % 11.5-17 complet Auto 013 .5 ed 06:10 Platele 11-05-2 155 142-424 complet t Bld 013 K/mm3 ed Ql 06:10 Manual Granulo 11-05-2 81.3 % 37.0-80 complet cytes 013 .0 ed Fr Bld 06:10 Auto LYMPH % 11-05-2 16.2 % 10-50 complet 013 ed 06:10 Monocyt 11-05-2 2.5 % 1.7-9.3 complet es Fr 013 ed Bld 06:10 Auto Granulo 11-05-2 7.4 1.3-8.0 complet cytes # 013 K/mm3 ed Bld 06:10 Auto Lymphoc 11-05-2 1.5 0.7-4.5 complet ytes Fr 013 K/mm3 ed Bld 06:10 Auto Monocyt 0.2 0.1-1.0 complet es # 013 K/mm3 ed Bld 06:10 Auto Glucose BldC [facility] (09-12-2013 21:17) Glucose 219 70-110 complet BldC 013 mg/dl ed Glucomt 21:17 r-nc Glucose BldC [facility] (09-12-2013 16:37) Glucose 155 70-110 complet BldC 013 mg/dl ed Glucomt 16:37 r-[facility] PLATELET PHERESIS (09-12-2013 15:00) PLATELE [id number] complet T 013 [id number] ed PHERESI 15:00 S BASIC METABOLIC PANEL [...] 013 mmoL/L ed SerPl-s 07:00 Cnc CO2 28 21.0-32 complet SerPl-s 013 mmoL/L .0 ed Cnc 07:00 Calcium 8.7 8.5-10. complet 013 mg/dL 1 ed SerPl-m 07:00 Cnc LIVER PROFILE (09-12-2013 07:00) Prot 11-04-2 7.2 6.4-8.2 complet SerPl-m 013 gm/dL ed Cnc 07:00 Albumin -04-2 3.5 3.4-5.0 complet 013 gm/dL ed SerPl-m 07:00 Cnc Bilirub 11-04-2 0.5 0.2-1.0 complet 013 mg/dL ed SerPl-m 07:00 Cnc Bilirub 11-04-2 0.24 0.0-0.2 complet Direct 013 mg/dL ed 07:00 SerPl-m Cnc Bilirub 11-04-2 0.26 0-0.9 complet 013 mg/dL ed Indirec 07:00 t SerPl-m Cnc AST 09-12-2 29 U/L 15-37 complet SerPl-c 013 ed Cnc 07:00 ALT 09-12-2 37 U/L 30-65 complet SerPl-c 013 ed Cnc 07:00 ALP 09-12-2 100 U/L 50-136 complet SerPl-c 013 ed Cnc 07:00 PROTIME/INR (09-12-2013 07:00) PROTHRO --2 11.6 9.9-11. complet MBIN 013 SECONDS 6 ed TIME 07:00 INR Bld 09-12-2 1.08 0.9-1.1 complet 013 UNK ed 07:00 ACT PARTIAL THROMBO TIME (09-12-2013 07:00) ACT 09-12-2 26.8 25.3-32 complet PARTIAL 013 SECONDS .0 ed 07:00 THROMBO TIME CBC with AUTO DIFF (09-12-2013 07:00) WBC # 11-04-2 7.5 4.8-10. complet Bld 013 K/MM3 8 ed Auto 07:00 RBC # 11--2 4.60 4.6-6.2 complet Bld 013 M/mm3 ed Auto 07:00 Hgb 09-12-2 11.8 14.1-18 complet Bld-mCn 013 g/dL .0 ed c 07:00 Hct Fr 09-12-2 38.0 % 42.0-52 complet Bld 013 .0 ed 07:00 MCV RBC 09-12-2 82.6 fl 82.2-97 complet 013 .8 ed 07:00 MCH RBC 09-12-2 25.7 pg 27-31.2 complet Qn 013 ed Auto 07:00 MEAN 31.1 31.8-35 complet CORPUSC 013 g/dl .4 ed ULAR 07:00 HGB CONC RDW RBC 17.1 % 11.5-17 complet Auto 013 .5 ed 07:00 Platele 125 142-424 complet t Bld 013 K/mm3 ed Ql 07:00 Manual Granulo 71.4 % 37.0-80 complet cytes 013 .0 ed Fr Bld 07:00 Auto LYMPH % 24.2 % 10-50 complet 013 ed 07:00 Monocyt 4.4 % 1.7-9.3 complet es Fr 013 ed Bld 07:00 Auto Granulo 5.4 1.3-8.0 complet cytes # 013 K/mm3 ed Bld 07:00 Auto Lymphoc 1.8 0.7-4.5 complet ytes Fr 013 K/mm3 ed Bld 07:00 Auto Monocyt 0.3 0.1-1.0 complet es # 013 K/mm3 ed Bld 07:00 Auto Procedures Procedure DOS Code Location Performer Comment PACKED 99.04 Andree PAGE MD ON ETHMOID 21.04 Andree Coon ART [facility] Encounters Encounter Start End Date Code Location Performer Type Date Inpatient KARLA Snell ([place]) 3 19:39 3 10:30 [facility] [place] Inpatient KARLA Carrion MD ([place]) 3 06:32 3 09:45 [facility]
--- OUTSIDE RECORDS SUMMARY | 2017-09-19 09:22 | External Medical Summary Rpt | CCD ---
Author Author , FARIHA FRIED Address Unknown Phone [email or web address] Care Team Providers Care Engine Cleaner Name Role Phone Sondra DENNIS, Unavailable Unavailable Sondra Drew APRN, Unavailable Unavailable Lise Snell MD, Unavailable Unavailable Andree Snell MD Purpose Continuity of Care Document - 09-12-2013 through 2016 Problems Code Diagnosis DOS Provider Status [id number] Alcohol [place] abuse [facility] 276.8 Hypokalemia [facility] 285.9 Anemia [facility] 287.5 Acquired [place] thrombocyto [facility] [id number] Fever [facility] 401.9 Hypertensiv [place] e urgency [facility] [id number] Diabetes [place] mellitus [facility] type 2 [facility] [id number] Active [facility] 571.2 Alcoholic [place] cirrhosis [facility] 584.9 Acute renal [place] failure [facility] 784.7 Epistaxis [facility] 787.02 Nausea [facility] 790.92 Coagulation [place] /bleeding [facility] abnormal [id number] Chronic [facility] Allergies, Adverse Reactions, Alerts Type Allergy [...] SQUARE METERS Comment: If this patient is -[place]ag[place], then multiply the Comment: result by 1.210. [...] blood 16:04 platele t mean volume claus [place] % = 15.1 1.7-9.3 complet 017 % [...] 017 M/mm3 ed cell 16:04 count Glucose [facility]comtr[facility] (09-26-2013 06:39) Glucose 09-26- 145 70-110 complet BldC 013 mg/dl ed Glucomt 06:39 r-[facility] BASIC METABOLIC PANEL (09-26-2013 06:20) Glucose 09-26- [...] K/MM3 ed Bld 06:20 Auto Glucose BldC [facility] (09-25-2013 20:10) Glucose 11-17-2 137 70-110 complet BldC 013 mg/dl ed Glucomt 20:10 r-[facility] Glucose dC [facility] (09-25-2013 17:11) Glucose 11-17-2 129 70-110 complet BldC 013 mg/dl ed Glucomt 17:11 r-[facility] Glucose BldC [facility] (09-25-2013 12:35) Glucose 11-17-2 149 70-110 complet BldC 013 mg/dl ed Glucomt 12:35 r-[facility] Glucose BldC [facility] (09-25-2013 06:43) Glucose 11-17-2 155 70-110 complet BldC 013 mg/dl ed Glucomt 06:43 r-[facility] BASIC METABOLIC PANEL (09-25-2013 06:10) Glucose 11-17-2 [...] K/MM3 ed Bld 06:10 Auto Glucose dC [facility] (09-24-2013 21:52) Glucose 16-2 102 70-110 complet BldC 013 mg/dl ed Glucomt 21:52 r-[facility] Glucose dC [facility] (09-24-2013 17:03) Glucose 11-16-2 99 70-110 complet BldC 013 mg/dl ed Glucomt 17:03 r-[facility] Glucose dC [facility] (09-24-2013 12:08) Glucose 11-16-2 104 70-110 complet BldC 013 mg/dl ed Glucomt 12:08 r-[facility] Glucose dC [facility] (09-24-2013 06:37) Glucose 11-16-2 126 70-110 complet BldC 013 mg/dl ed Glucomt 06:37 r-[facility] BASIC METABOLIC PANEL (09-24-2013 06:15) Glucose 11-16-2 [...] K/mm3 ed Bld 06:10 Auto Glucose BldC [facility] (09-12-2013 21:17) Glucose 219 70-110 complet BldC 013 mg/dl ed Glucomt 21:17 r-nc Glucose BldC [facility]tr[facility] (09-12-2013 16:37) Glucose 155 70-110 complet BldC 013 mg/dl ed Glucomt 16:37 r-[facility] PLATELET PHERESIS (09-12-2013 15:00) PLATELE [id number] complet T 013 [id number] ed PHERESI 15:00 S BASIC METABOLIC PANEL [...] KARLA Snell ([place]) 3 19:39 3 10:30 [facility] Inpatient KARLA Carrion MD ([place]) 3 06:32 3 09:[address] [facility]
--- OUTSIDE RECORDS SUMMARY | 2017-09-19 09:23 | External Medical Summary Rpt | CCD ---
Demographics Preferred Language Tu[place] Marital Status Unknown Rastafarian Affiliation Unknown Race Unknown Ethnic Group Unknown Author Author , FARIHA FRIED Address Unknown Phone Immunization No patient found.
--- OUTSIDE RECORDS SUMMARY | 2017-09-19 09:23 | External Medical Summary Rpt | CCD ---
Demographics Preferred Language [place] Island[place] Marital Status Unknown Episcopal Affiliation Unknown Race Unknown Ethnic Group Unknown Author Author , FARIHA FRIED Address Unknown Phone Immunization No patient found.
[2017-09-19] MEDS ORDERED: AMLO2.5T PO (10:08)
[2017-09-19] MEDS ORDERED: BACLOFEN 10MG T10 MG PO (10:09)
[2017-09-19] MEDS ORDERED: CARVEDILOL 25MG25 MG PO (10:10)
[2017-09-19] MEDS ORDERED: DULOXETINE 30MG30 MG PO (10:12)
[2017-09-19] MEDS ORDERED: CYMBALTA60 MG PO (10:12)
[2017-09-19] MEDS ORDERED: GABAPENTIN 600600 MG PO (10:13)
[2017-09-19] MEDS ORDERED: LUMIGAN 2.5 ML2.5 M1 OP (10:14)
[2017-09-19] MEDS ORDERED: POTASSIUM CHLO20 ME2 PO (10:15)
--- NOTE | 2017-09-19 10:15 | CONSULT NOTE ---
Pharmacokinetic Consult Date of consult: 09/19/17 Time of consult: 1011 Referring provider: DR. HARKINS Reason for consult: VANCOMYCIN DOSING Allergies: Coded Allergies: moxifloxacin (From Avelox) (Severe, TONGUE AND FACE SWELLED 09/17/17) Home Medications: Active Scripts Lactulose (Generlac) 10 GM PO Q8 #30 ML Prov: 09/17/17 CLONIDINE HYDROCHLORIDE (Catapres 0.2MG) 0.2 MG PO BID #30 Prov: 09/26/13 Clonidine Hydrochloride (Clonidine 0.2MG Tab) 0.2 MG PO BID 30 Days Prov: 09/26/13 Losartan Potassium (Losartan 100MG) 100 MG PO DAILY #30 TAB Prov: 09/26/13 Reported Medications Omeprazole (Omeprazole 20MG) 20 MG PO BID TAMSULOSIN HCL (Tamsulosin HCl) 0.4 MG PO QHS #30 CAP Simvastatin (Simvastatin 40MG Tab) 40 MG PO QHS Amlodipine Besylate 2.5 MG PO DAILY BACLOFEN (Baclofen) 10 MG PO BID Carvedilol (Carvedilol 25MG) 25 MG PO BID Apixaban (Eliquis) 5 MG PO BID #20 INSULIN GLARGINE (Lantus 3ML Solostar Pen) 28 UNITS SC QHS Desvenlafaxine Succinate (Pristiq ER) 100 MG PO DAILY Height (feet): 5 Height (inches): 8.00 Medical History: CAD? No Angina: Yes MD: No Hypertension? Yes Hyperlipidemia? Yes CHF? No DVT? No PE? No COPD? Yes Asthma? No Anemia? Yes GERD? Yes Gastric ulcers? No GI Bleed? No Hernia? No Thyroid Problems? No Hypothyroidism? No CVA? No Seizures? No Diabetes? Yes Insulin Dependent: Yes Insulin Pump: No Home FSBS? Yes Renal Insuffiency? No UTI? Yes Stones? Yes BPH? No GB Disease: No Nephritic Syndrome? No Asplenia? No Hepatitis? No Sickle Cell Disease? No Arthritis? Yes Migraines? No Cataracts? Yes Glaucoma? Yes MRSA? No HIV? No TB? No Anxiety? No Depression? Yes Cancer? Yes Site: ESOPHAGEAL Labs: Laboratory Tests 09/19/17 0819: Lactic Acid 1.5 11/11/17 0755: Sodium 135 L, Potassium 4.3, Chloride 104, Carbon Dioxide 25, BUN 12, Creatinine 0.7 L, Estimated Creat Clear 104, Estimated GFR (MDRD) 112, Glucose 158 H, Calcium 8.2 L, Total Bilirubin 1.4 H, AST 13 L, ALT 13, Alkaline Phosphatase 108, Creatine Kinase 27 L, CK-MB (CK-2) Rel Index 1.9, CK and CKMB Interp < 0.5, Troponin I < 0.02, Total Protein 6.3 L, Albumin 1.7 L, Globulin 4.6 H, Albumin/Globulin Ratio 0.4 L, WBC 21.5 *H, RBC 5.06, Hgb 12.5 L, Hct 40.0 L, MCV 79.1 L, RDW 14.2, Plt Count 313, MPV 8.9, Gran % 87.0 H, Gran # 18.7 H, Total Counted 100, Lymphocytes % 6.8 L, Monocytes % 6.0, Eosinophils % 0.1, Basophils % 0.1, Neutrophils 93 H, Lymphocytes (Manual) 4 L, Lymphocytes # 1.5, Monocytes (Manual) 3, Monocytes # 1.3 H, Eosinophils # 0.0, Basophils # 0.0, Platelet Estimate NORMAL, Hypochromasia 2+, [place] Cells 2+, PUBS MCHC 31.3 L, MCH 24.7 L Microbiology 09/19 819 BLOOD: Anaerobic Blood Culture - RECD 09/19 819 BLOOD: Aerobic Blood Culture - RECD 09/19 819 BLOOD: Anaerobic Blood Culture - RECD 09/19 819 BLOOD: Aerobic Blood Culture - RECD Problem List: 1. Aspiration pneumonia Plan: BASED ON PATIENT FACTORS, RECOMMEND VANCOMYCIN 1500 MG IV Q12H. PHARMACY WILL FOLLOW DAILY AND ADJUST APPROPRIATE. at 1014
[2017-09-19] MEDS ORDERED: FLOMAX 0.4MG C0.4 MG PO (10:16)
[2017-09-19] MEDS ORDERED: MIRAPEX 1 MG TAB1 MG PO (10:16)
[2017-09-19] MEDS ORDERED: TRAMADOL 50MG T50 M1 PO (10:17)
[2017-09-19] MEDS ORDERED: LACTULOSE10 GM/15 M PO ×2 (10:17→12:03)
[2017-09-19] MEDS ORDERED: TYLENOL ES500 MG PO (10:20)
[2017-09-19] MEDS ORDERED: BISAC-EVAC10 MG PR (10:20)
[2017-09-19] MEDS ORDERED: HYDROXYZINE 25M25 MG PO (10:21)
[2017-09-19] MEDS ORDERED: NICORELIEF4 MG PO (10:21)
[2017-09-19] MEDS ORDERED: MIRALAX17 GM/PACK PO (10:21)
[2017-09-19] MEDS ORDERED: CHLORASEPTIC MA30 ML MT (10:22)
[2017-09-19] MEDS ORDERED: ROBAFEN100 MG/5 M PO (10:22)
[2017-09-19] MEDS ORDERED: Zofran4 MG PO (10:23)
--- NOTE | 2017-09-19 10:39 | HISTORY AND PHYSICAL REPORT ---
History and Physical (FCA) Date of admission: 09/19/17 Chief complaint: AMS History: History of Present Illness: Mr. Noel a 66yo male patient at [facility] with hx of CVA, left hemiparesis, and aspiration of anything less than thick liquids. He has a hx of liver cirrhosis and alcoholism. He presented to the ER two days ago with AMS. His labs were within normal limits. He was hydrated and sent back to [facility]. He presented to the ER again today with AMS and low oxygen sats. He was found to have a left sided pneumonia. According to the CXR from the previous ER visit, he had pneumonia at that time as well. He was admitted. Past Medical History: Medical History: CAD? No Angina: Yes TN: No Hypertension? Yes Hyperlipidemia? Yes CHF? No DVT? No PE? No COPD? Yes Asthma? No Anemia? Yes GERD? Yes Gastric ulcers? No GI Bleed? No Hernia? No Thyroid Problems? No Hypothyroidism? No CVA? Yes Seizures? No Diabetes? Yes Insulin Dependent: Yes Insulin Pump: No Home FSBS? Yes Renal Insuffiency? No UTI? Yes Stones? Yes BPH? No GB Disease: No Nephritic Syndrome? No Asplenia? No Hepatitis? No Sickle Cell Disease? No Arthritis? Yes Migraines? No Cataracts? Yes Glaucoma? Yes MRSA? No HIV? No TB? No Anxiety? No Depression? Yes Cancer? Yes Site: ESOPHAGEAL Additional hx: 1. ETOH abuse 2. Sleep apnea 3. Alcoholic Cirrhosis 4. Paroxysmal afib 5. Dysphagia Surgical history: Previous Surgery?Y R SHOULDER-RT X 2 SINUS RIGHT BREAST NASAL BANDING OF CANCEROUS NODULE IN ESOPHAGUS Allergies: Coded Allergies: moxifloxacin (From Avelox) (Severe, TONGUE AND FACE SWELLED 09/17/17) amlodipine (From NORVASC) (09/19/17) Family History: Family history: Postive for: CAD, DM, HTN. Social History: Smoking Hx Tobacco: No Smoker: Former Smoker Type: N/A Packs/day: < 1 Pack Are you exposed to second hand No Alcohol: Alcohol: No Hx of Drug Use: Drug Use? No Review of Systems: Constitutional Positive for: fatigue, lethargy, malaise, weak. ENT Positive for: nasal congestion. No: sore throat. Cardiovascular Positive for: chest pain (left side). No: palpitations. Respiratory Positive for: shortness of air, productive cough (sputum), wheezing. GI No: abdominal pain, diarrhea, vomitting. (male) No: frequency, hematuria. Neurological Positive for: weakness. No: headache. Musculoskeletal No: extremity pain, joint pain. Physical Exam: Vital signs: 1ST Vital Signs Result Date Time Pulse Ox 89 09/19 757 B/P 102/56 09/19 757 Temp 98.7 09/19 757 Pulse 84 09/19 757 Resp 22 09/19 757 O2 Flow Rate 2 09/19 907 O2 Delivery OXYGEN 09/19 1010 Exam: General appearance: awake, yelling at the nursing staff giving him a bath Eyes: EOM's w/normal ROM, PERRLA ENT: nose normal, pharynx normal, dry mucous membranes Neck: non-tender, full range of motion, supple Cardiovascular: regular rate & rhythm Respiratory: diminished breath sounds on the left with rales and rhonchi, right with faint wheezes ABD: non-distended, normal bowel sounds, no rebound, soft, no tenderness, no guarding Extremities: no peripheral edema Musculoskeletal: left sided weakness from CVA Skin: pale Neuro: speech clear, agitated Lab data: Labs: Laboratory Tests 09/19/17 1025: Ammonia 21 09/19/17 0819: Lactic Acid 1.5 09/19/17 0755: Sodium 135 L, Potassium 4.3, Chloride 104, Carbon Dioxide 25, BUN 12, Creatinine 0.7 L, Estimated Creat Clear 104, Estimated GFR (MDRD) 112, Glucose 158 H, Calcium 8.2 L, Total Bilirubin 1.4 H, AST 13 L, ALT 13, Alkaline Phosphatase 108, Creatine Kinase 27 L, CK-MB (CK-2) Rel Index 1.9, CK and CKMB Interp < 0.5, Troponin I < 0.02, Total Protein 6.3 L, Albumin 1.7 L, Globulin 4.6 H, Albumin/Globulin Ratio 0.4 L, WBC 21.5 *H, RBC 5.06, Hgb 12.5 L, Hct 40.0 L, MCV 79.1 L, RDW 14.2, Plt Count 313, MPV 8.9, Gran % 87.0 H, Gran # 18.7 H, Total Counted 100, Lymphocytes % 6.8 L, Monocytes % 6.0, Eosinophils % 0.1, Basophils % 0.1, Neutrophils 93 H, Lymphocytes (Manual) 4 L, Lymphocytes # 1.5, Monocytes (Manual) 3, Monocytes # 1.3 H, Eosinophils # 0.0, Basophils # 0.0, Platelet Estimate NORMAL, Hypochromasia 2+, Holiday Cells 2+, PUBS MCHC 31.3 L, MCH 24.7 L Microbiology 09/19 819 BLOOD: Anaerobic Blood Culture - RECD 09/19 819 BLOOD: Aerobic Blood Culture - RECD 09/19 819 BLOOD: Anaerobic Blood Culture - RECD 09/19 819 BLOOD: Aerobic Blood Culture - RECD Radiology results: Results: CXR - 1. Large left pleural effusion with underlying airspace disease with opacification of the left lung. 2. Possible left mediastinal mass or aneurysm. Consider chest CT preferably with contrast for further evaluation. Head CT IMPRESSION: 1. Large area of encephalomalacia on the right with an old infarction of the middle cerebral artery. 2. Atrophy with chronic ischemic gliotic change. 3. No acute intracranial hemorrhage or mass effect Diagnosis(es): 1. Pneumonia involving left lung Status: Acute 2. Pleural effusion, left Status: Acute 3. Dysphagia 4. CVA, old, aphasia Status: Chronic 5. Left hemiplegia Status: Chronic 6. Essential hypertension Status: Chronic 7. Diabetes mellitus type 2 Status: Chronic 8. Alcoholic cirrhosis Status: Chronic 9. History of alcoholism Status: Chronic Plan: Pt has been started on abx. Will discuss pleural effusion and possible mediastinal mass with Dr. Snell. May need a CT of the chest. Will discuss medications to continue with Dr. Snell. (Keturah DENNIS,Sondra) Past Medical History: Medications: Reported Medications Duloxetine Hcl (Duloxetine 30MG Capsule) 30 MG PO DAILY DULOXETINE HCL (Cymbalta 60MG) 60 MG PO DAILY Lactulose (Lactulose) 20 GM PO DAILY PRN CONSTIPATION Hydroxyzine Pamoate (Hydroxyzine) 25 MG PO Q4HP PRN ANXIETY/ITCHING Guaifenesin (Robafen) 10 ML PO Q6HP PRN COUGH Phenol/Glycerin (Chloraseptic Max [place]) 2 SPRAY MT Q2HP PRN SORE THROAT Ondansetron (Zofran Odt) 4 MG PO Q8HP PRN NAUSEA/VOMITING ALBUTEROL-IPRATROPIUM (Iprat-Albut 0.5-3(2.5) MG/3 Ml) 3 ML IH Q2HP PRN SHORTNESS OF BREATH Insulin Glargine (Lantus Insulin Vial) 5 UNITS SC QHS Lactulose (Lactulose) 10 GM PO Q8H Omeprazole (Omeprazole 20MG) 20 MG PO QHS Amlodipine Besylate 2.5 MG PO DAILY BACLOFEN (Baclofen) 10 MG PO BID Carvedilol (Carvedilol 25MG) 25 MG PO BID Apixaban (Eliquis) 5 MG PO BID Gabapentin (Gabapentin 600MG) 600 MG PO TID Bimatoprost (Lumigan 0.1% Ophth Soln) 1 DROP OP DAILY POTASSIUM CHL (Potassium Chloride) 20 MEQ PO DAILY Pramipexole Dihydrochloride (Mirapex 1 Mg Tablet) 0.5 MG PO QHS TAMSULOSIN HCL (Flomax 0.4MG) 0.4 MG PO QHS TRAMADOL HCL (Tramadol) 50 MG PO TID Acetaminophen (Tylenol XS 500MG) 500 MG PO Q4HP PRN PAIN/FEVER Bisacodyl (Bisacodyl Supp) 10 MG MD DAILYP PRN BOWEL MOVEMENT Nicotine Polacrilex (Nicorelief) 4 MG PO Q2HP PRN SMOKING CESSATION Polyethylene Glycol 3350 (Miralax) 17 GM PO DAILY Diagnosis(es): 1. HCAP (healthcare-associated pneumonia) 2. Pleural effusion, left Status: Acute 3. Hypotension 4. Dysphagia 5. CVA, old, aphasia Status: Chronic 6. Left hemiplegia Status: Chronic 7. Essential hypertension Status: Chronic 8. Diabetes mellitus type 2 Status: Chronic 9. Alcoholic cirrhosis Status: Chronic 10. History of alcoholism Status: Chronic Plan: Pt seen and examined. He is still hypotensive. He opens eyes to voice but o/w does not respond. No resp distress. BS on left lung. Abdomen soft, nondistended. Findings on his CXR, I think, are most consistent with pneumonia as there was no indication of a mass on CXR 2 days ago. If not responding to treatment, will consider CT scan by Thursday. Will give fluid bolus now for his hypotension. Continue to hold most of his maintenance meds. (Andree Snell MD) at 1138 at [phone]
--- NOTE | 2017-09-19 10:43 | RADIOLOGY REPORT PS360 ---
CT HEAD W/O CONTRAST HISTORY: Altered mental status, memory loss, confusion or disorientation CHANGE IN MENTAL STATUS X 1 WEEK ORDERING PHYSICIAN: Andree Snell MD PATIENT AGE: 66 years COMPARISON: 08/11/2010 TECHNIQUE: Axial images obtained without contrast. Brain and bone windows reviewed. FINDINGS: There is a large area of encephalomalacia in the right temporal, parietal, anterior occipital, and posterior frontal lobe consistent with an old area of infarction. There is generalized atrophy with periventricular ischemic gliotic change. No midline shift or mass effect evident. No acute intracranial hemorrhage. IMPRESSION: 1. Large area of encephalomalacia on the right with an old infarction of the middle cerebral artery. 2. Atrophy with chronic ischemic gliotic change. 3. No acute intracranial hemorrhage or mass effect
--- NOTE | 2017-09-19 10:48 | RADIOLOGY REPORT PS360 ---
CHEST-PORTABLE HISTORY: MENTAL STATUS CHANGES X1 WEEK, C/O left RIB PAIN ORDERING PHYSICIAN: Orestes Wild MD PATIENT AGE: 66 years COMPARISON: 09/17/2017 FINDINGS: There has been interval development of a large left pleural effusion. Increased density is present lateral to the aortic knob on the left and could be related to a function of the layering effusion. A mass lesion is also a consideration. Chest CT with contrast may be of further value. There is opacification of the left chest from the effusion and underlying atelectasis or pneumonia. The right lung is clear. Normal heart size. No acute bony anomalies. IMPRESSION: 1. Large left pleural effusion with underlying airspace disease with opacification of the left lung. 2. Possible left mediastinal mass or aneurysm. Consider chest CT preferably with contrast for further evaluation.
[2017-09-19] MEDS ORDERED: IPRATROPIUM BROM3 M1 IH (12:01)
[2017-09-19] MEDS ORDERED: LANTUS INS100 UNITS/ SC (12:02)
--- NOTE | 2017-09-19 13:15 | PHARMACY CLINIC NOTE ---
Patient Demographics Patient Demographics Admission date: 09/19/17 Date: 09/19/17 Time: 1314 Allergies Coded Allergies: moxifloxacin (From Avelox) (Severe, TONGUE AND FACE SWELLED 09/17/17) amlodipine (From NORVASC) (09/19/17) HEIGHT- FT: 5 IN: 7.00 K.057 VTE General Information Labs: Laboratory Tests 09/19 0755 Hematology Hgb (14.1 - 18.0 g/dL) 12.5 L Hct (42.0 - 52.0 %) 40.0 L Plt Count (142 - 424 K/mm3) 313 Disclaimer The following section includes nursing documentation that has been pulled in for pharmacy review. Patient's VTE score: 7 Patient's VTE Risk: MOD RISK Clinical trial participant? No VTE prophylaxis NQF [id number] VTE prophylaxis ordered? Yes Type of prophylaxis/treatment: ELOY at 131
--- NOTE | 2017-09-19 14:38 | ACUTE CARE PROGRESS NOTE (QUA) ---
Progress Notes Subjective Date 09/19/17 Time 1434 Note He arouses when trying to turn patient. He complains of left shoulder pain. Seems confused as to his circumstances. No resp distress. Objective Findings Last VS-Temp:98.6 B/P:91/39 Pulse:70 Resp:22 SaO2:96 OXYGEN Last weight lbs:161 oz:1 K.057 Method:Bed Scales Exam General appearance: he does arouse and talks but is confused. Remainder of exam unchanged Assessment/Plan Problem List 1. HCAP (healthcare-associated pneumonia) 2. Pleural effusion, left Status: Acute 3. Hypotension 4. Dysphagia 5. CVA, old, aphasia Status: Chronic 6. Left hemiplegia Status: Chronic 7. Essential hypertension Status: Chronic 8. Diabetes mellitus type 2 Status: Chronic 9. Alcoholic cirrhosis Status: Chronic 10. History of alcoholism Status: Chronic Patient condition Guarded Plan: He had slight response to fluid bolus. Primary fluid rate increased. Continue antibiotic coverage. This inpt stay is expected to cross 2 MNs from start of care Yes at 1434
[2017-09-20] VITALS (8 sets, daily range): BP systolic 116–152; BP diastolic 38–71
[2017-09-20 06:56] LABS: HEMOGLOBIN 11.7 g/dL (14.1-18.0); LYMPH # 1.2 K/mm3 (0.7-4.5); LYMPH % 5.8 % (10-50)
--- NOTE | 2017-09-20 08:28 | ACUTE CARE PROGRESS NOTE (QUA) ---
Progress Notes Subjective Date 09/20/17 Time 0827 Note Some episodes of confusion and agitation during the night but generally cooperative with care. Hypotension has resolved. Still c/o left shoulder pain. Congested cough Objective Findings Laboratory Tests 09/20/17 0625: Sodium 140, Potassium 3.8, Chloride 109 H, Carbon Dioxide 24, BUN 14, Creatinine 0.7 L, Estimated Creat Clear 104, Estimated GFR (MDRD) 112, Glucose 137 H, Calcium 8.3 L, Total Bilirubin 1.7 H, AST 10 L, ALT 7 L, Alkaline Phosphatase 90, Total Protein 5.9 L, Albumin 1.5 L, Globulin 4.4 H, Albumin/ Globulin Ratio 0.3 L, WBC 20.5 *H, RBC 4.77, Hgb 11.7 L, Hct 38.7 L, MCV 81.2 L, RDW 14.4, Plt Count 256, MPV 8.8, Gran % 79.5, Gran # 16.3 H, Lymphocytes % 5.8 L, Monocytes % 14.5 H, Eosinophils % 0.0 L, Basophils % 0.2, Lymphocytes # 1.2, Monocytes # 3.0 H, Eosinophils # 0.0, Basophils # 0.0, PUBS MCHC 30.1 L , MCH 24.5 L Last VS-Temp:98.7 B/P:148/68 Pulse:99 Resp:22 SaO2:90 OXYGEN Last weight lbs:161 oz:1 K.057 Method:Bed Scales Exam General appearance: more alert but oriented to name only ENT: mucous membranes moist Cardiovascular: regular rate & rhythm Respiratory: bilateral coarse rhonchi. BS decreased in left lower lung ABD: normal bowel sounds, soft, no tenderness Neuro: left side is flaccid Reviewed: vital signs, lab results, nursing notes Assessment/Plan Problem List 1. HCAP (healthcare-associated pneumonia) 2. Pleural effusion, left Status: Acute 3. Hypotension Assessment/Plan improved 4. Dysphagia 5. CVA, old, aphasia Status: Chronic 6. Left hemiplegia Status: Chronic 7. Essential hypertension Status: Chronic 8. Diabetes mellitus type 2 Status: Chronic 9. Alcoholic cirrhosis Status: Chronic 10. History of alcoholism Status: Chronic 11. Shoulder pain, left Plan: Continue current antibiotic regimen. Resume some of his home meds. This inpt stay is expected to cross 2 MNs from start of care Yes at 1211
[2017-09-21] VITALS (7 sets, daily range): BP systolic 114–142; BP diastolic 52–70
[2017-09-21 08:33] LABS: HEMOGLOBIN 11.2 g/dL (14.1-18.0); LYMPH # 1.2 K/mm3 (0.7-4.5); LYMPH % 5.3 % (10-50)
--- NOTE | 2017-09-21 08:38 | ACUTE CARE PROGRESS NOTE (QUA) ---
See Addendum Progress Notes Subjective Date 09/21/17 Time 0831 Note Does not complete sentences. Denies CP. Per nursing notes: decrease in O2 Sats and placed on magdalena mask at 50%. RR remains rapid. eating ; has to be fed bowels are moving; voiding Objective Findings Laboratory Tests 09/21/17 0825: WBC 21.8 *H, RBC 4.55 L, Hgb 11.2 L, Hct 36.0 L, MCV 79.1 L, RDW 14.5, Plt Count 283, MPV 8.6, Gran % 80.2 H, Gran # 17.5 H, Lymphocytes % 5.3 L, Monocytes % 14.2 H, Eosinophils % 0.2, Basophils % 0.1, Lymphocytes # 1.2, Monocytes # 3.1 H, Eosinophils # 0.0, Basophils # 0.0, PUBS MCHC 31.1 L, MCH 24.6 L 09/21/17 0611: POC Glucose 130 H 09/20/17 2155: Vancomycin Trough 9.5 09/20/17 2132: POC Glucose 166 H 09/20/17 1706: POC Glucose 141 H Vital Signs Date Time Temp Pulse Resp B/P Pulse O2 O2 Flow FiO2 Ox Delivery Rate 09/21 0806 98.5 82 22 114/52 88 OXYGEN 09/21 0550 3 09/21 0404 3 09/21 0404 97.8 81 24 125/52 91 OXYGEN 3 09/21 0151 3 09/20 2350 3 09/20 2350 98.2 76 24 138/65 80 OXYGEN 3 09/20 2258 3 09/20 2143 3 09/20 2115 3 09/20 2020 98.1 60 22 116/38 95 3 09/20 2004 3 09/20 2004 98.1 60 22 116/38 95 OXYGEN 3 09/20 1901 3 09/20 1700 3 09/20 1553 98.1 78 24 119/59 90 OXYGEN 09/20 1500 3 09/20 1154 98.7 99 22 148/68 90 OXYGEN 09/20 1115 3 09/20 0900 3 09/20 0900 98.2 93 24 152/71 90 3 Current Medications Furosemide 40 MG ONCE ONE IV (DC) Furosemide 0 .STK-MED ONE .ROUTE (DC) Insulin Human [rDNA origin] 0 .STK-MED ONE SC (DC) Pramipexole Dihydrochloride 0.5 MG QHS PO Tamsulosin HCl 0.4 MG QHS PO Diagnostic Test (Pha) 1 EACH W/MEALS&HS FS Insulin Human [rDNA origin] SEE ADMIN CRITERIA FOR LOW INTENSITY SS W/MEALS&HS SC Gabapentin 600 MG TID PO Carvedilol 25 MG BID PO Acetaminophen 650 MG Q6HP PRN PO Bimatoprost 1 DROP DAILY OP Duloxetine HCl 60 MG DAILY PO Piperacillin Sod/Tazobactam Sod 3.375 GM Q6H IV Sodium Chloride 50 ML Sodium Chloride 10 ML PRN PRN IV Vancomycin HCl 1,500 MG Q12H IV (CKDr) Sodium Chloride 250 ML Sodium Chloride 1,000 ML .Q25H IV Influenza Virus Vaccine Quadrival 0.5 ML PRN PRN IM Sodium Chloride 10 ML PRN PRN IV (DC) 09/20 1500 09/20 2300 09/21 0700 Intake Total 240 1605 Output Total Balance 240 1605 Intake, IV 1605 Intake, Oral 240 Output, Stool Last VS-Temp:98.5 B/P:114/52 Pulse:82 Resp:22 SaO2:88 OXYGEN Last weight lbs:161 oz:1 K.057 Method:Bed Scales Exam General appearance: alert Cardiovascular: regular rate & rhythm Respiratory: decreased BS on the left ABD: normal bowel sounds, soft, no tenderness Extremities: no peripheral edema Neuro: alert, does not complete sentences Assessment/Plan Problem List 1. HCAP (healthcare-associated pneumonia) 2. Pleural effusion, left Status: Acute 3. Hypotension 4. Dysphagia 5. CVA, old, aphasia Status: Chronic 6. Left hemiplegia Status: Chronic 7. Essential hypertension Status: Chronic 8. Diabetes mellitus type 2 Status: Chronic 9. Alcoholic cirrhosis Status: Chronic 10. History of alcoholism Status: Chronic 11. Shoulder pain, left Patient condition Guarded Plan: CT of the chest This inpt stay is expected to cross 2 MNs from start of care Yes at 0837
[2017-09-21 09:12] LABS: NEUTROPHILS 85 % (42-76)
--- NOTE | 2017-09-21 09:44 | CONSULT NOTE ---
Pharmacokinetic Consult Date of consult: 09/21/17 Time of consult: 938 Referring provider: DR. HARKINS Reason for consult: VANCOMYCIN TROUGH Allergies: Coded Allergies: moxifloxacin (From Avelox) (Severe, TONGUE AND FACE SWELLED 09/17/17) amlodipine (From NORVASC) (09/19/17) Home Medications: Reported Medications Duloxetine Hcl (Duloxetine 30MG Capsule) 30 MG PO DAILY DULOXETINE HCL (Cymbalta 60MG) 60 MG PO DAILY Lactulose (Lactulose) 20 GM PO DAILY PRN CONSTIPATION Hydroxyzine Pamoate (Hydroxyzine) 25 MG PO Q4HP PRN ANXIETY/ITCHING Guaifenesin (Robafen) 10 ML PO Q6HP PRN COUGH Phenol/Glycerin (Chloraseptic Max [place]) 2 SPRAY MT Q2HP PRN SORE THROAT Ondansetron (Zofran Odt) 4 MG PO Q8HP PRN NAUSEA/VOMITING ALBUTEROL-IPRATROPIUM (Iprat-Albut 0.5-3(2.5) MG/3 Ml) 3 ML IH Q2HP PRN SHORTNESS OF BREATH Insulin Glargine (Lantus Insulin Vial) 5 UNITS SC QHS Lactulose (Lactulose) 10 GM PO Q8H Omeprazole (Omeprazole 20MG) 20 MG PO QHS Amlodipine Besylate 2.5 MG PO DAILY BACLOFEN (Baclofen) 10 MG PO BID Carvedilol (Carvedilol 25MG) 25 MG PO BID Apixaban (Eliquis) 5 MG PO BID Gabapentin (Gabapentin 600MG) 600 MG PO TID Bimatoprost (Lumigan 0.1% Ophth Soln) 1 DROP OP DAILY POTASSIUM CHL (Potassium Chloride) 20 MEQ PO DAILY Pramipexole Dihydrochloride (Mirapex 1 Mg Tablet) 0.5 MG PO QHS TAMSULOSIN HCL (Flomax 0.4MG) 0.4 MG PO QHS TRAMADOL HCL (Tramadol) 50 MG PO TID Acetaminophen (Tylenol XS 500MG) 500 MG PO Q4HP PRN PAIN/FEVER Bisacodyl (Bisacodyl Supp) 10 MG CA DAILYP PRN BOWEL MOVEMENT Nicotine Polacrilex (Nicorelief) 4 MG PO Q2HP PRN SMOKING CESSATION Polyethylene Glycol 3350 (Miralax) 17 GM PO DAILY Height (feet): 5 Height (inches): 7.00 Medical History: CAD? No Angina: Yes CA: No Hypertension? Yes Hyperlipidemia? Yes CHF? No DVT? No PE? No COPD? Yes Asthma? No Anemia? Yes GERD? Yes Gastric ulcers? No GI Bleed? No Hernia? No Thyroid Problems? No Hypothyroidism? No CVA? Yes Seizures? No Diabetes? Yes Insulin Dependent: Yes Insulin Pump: No Home FSBS? Yes Renal Insuffiency? No UTI? Yes Stones? Yes BPH? No GB Disease: No Nephritic Syndrome? No Asplenia? No Hepatitis? No Sickle Cell Disease? No Arthritis? Yes Migraines? No Cataracts? Yes Glaucoma? Yes MRSA? No HIV? No TB? No Anxiety? No Depression? Yes Cancer? Yes Site: ESOPHAGEAL Additional hx: 1. ETOH abuse 2. Sleep apnea 3. Alcoholic Cirrhosis 4. Paroxysmal afib 5. Dysphagia Labs: Laboratory Tests 09/21/17 0825: Sodium 141, Potassium 3.0 L, Chloride 108 H, Carbon Dioxide 25, BUN 14, Creatinine 0.7 L, Estimated Creat Clear 103, Estimated GFR (MDRD) 112, Glucose 152 H, Calcium 8.1 L, Total Bilirubin 1.4 H, AST 16, ALT 10 L, Alkaline Phosphatase 91, Total Protein 6.0 L, Albumin 1.4 L, Globulin 4.6 H, Albumin/ Globulin Ratio 0.3 L, WBC 21.8 *H, RBC 4.55 L, Hgb 11.2 L, Hct 36.0 L, MCV 79.1 L, RDW 14.5, Plt Count 283, MPV 8.6, Gran % 80.2 H, Gran # 17.5 H, Total Counted 100, Lymphocytes % 5.3 L, Monocytes % 14.2 H, Eosinophils % 0.2, Basophils % 0.1, Neutrophils 85 H, Lymphocytes (Manual) 8 L, Lymphocytes # 1.2 , Monocytes (Manual) 7, Monocytes # 3.1 H, Eosinophils # 0.0, Basophils # 0.0, Platelet Estimate NORMAL, PUBS MCHC 31.1 L, MCH 24.6 L 09/21/17 0611: POC Glucose 130 H 09/20/17 2155: Vancomycin Trough 9.5 09/20/17 2132: POC Glucose 166 H 09/20/17 1706: POC Glucose 141 H Plan: BASED ON PATIENT FACTORS AND VANCOMYCIN TROUGH LEVEL, RECOMMEND SLIGHTLY INCREASING DOSE OF VANCOMYCIN TO 1,750MG IV Q12H. PHARMACY WILL CONTINUE TO FOLLOW AND ADJUST DOSE APPROPRIATE. at 0944
--- NOTE | 2017-09-21 10:49 | RADIOLOGY REPORT PS360 ---
CT CHEST W/ CONTRAST INDICATION: Pneumonia, abnormal chest x-ray with large left effusion and possible left perihilar mass PNEUMONIA WITH ARF ORDERING PHYSICIAN: Andree Snell MD PATIENT AGE: 67 years COMPARISON: CT scan of to 216 TECHNIQUE: Axial images are obtained with 75 mL's of Isovue-370 contrast. Sagittal and coronal reformatted images are reviewed as well. FINDINGS: There is a large left pleural effusion occupying the entire hemithorax with collapse of the left lung.. There is occlusion of the left mainstem bronchus with soft tissue density filling the left mainstem bronchus. There may be a soft tissue mass at the distal aspect of the left mainstem bronchus causing is occlusion measuring 2 cm. Bronchoscopy suggested for further evaluation. Mild subcarinal adenopathy there are small nodes in the mediastinum measuring up to 12 x 9 mm. There is diffuse consolidation involving the right upper lobe within the apical and posterior segment and within the anterior segment centrally consolidation also noted involving the right middle lobe posteriorly consistent with right-sided pneumonia. There is trace right pleural effusion. There is normal heart size. Calcification involves the coronary arteries and aortic root. No pericardial effusion. Scattered small lymph nodes are present in the upper abdomen anteriorly and in the precardiac region. The liver has a cirrhotic appearance. No acute bony anomalies. IMPRESSION: 1. Large left pleural effusion with collapsed left lung with complete opacification of the left chest. Would not recommend thoracentesis due to central obstructing lesion as the likelihood of developing a pneumothorax ex vacuo is considerable. 2. Soft tissue density fills the left mainstem bronchus. An obstructing lesion is suspected at the distal aspect of the left mainstem bronchus measuring 2 cm with occlusion of the left mainstem bronchus. Bronchoscopy suggested for further evaluation. 3. Right-sided pneumonia with trace right effusion 4. Cirrhosis
[2017-09-22] VITALS (8 sets, daily range): BP systolic 107–159; BP diastolic 47–89
--- NOTE | 2017-09-22 08:41 | ACUTE CARE PROGRESS NOTE (QUA) ---
Progress Notes Subjective Date 09/22/17 Time 0715 Note Patient denies pain and SOB; he is just thirsty. per nursing: he had sips of fluid all night; patient is now receiving O2 with non-rebreather Dr. Snell discussed patient condition with , Suly. She wishes to consult with Hospice for care. Objective Findings Laboratory Tests 09/22/17 0616: POC Glucose 149 H 09/21/17 2101: POC Glucose 135 H 09/21/17 1656: POC Glucose 132 H 09/21/17 1141: POC Glucose 175 H Vital Signs Date Time Temp Pulse Resp B/P Pulse O2 O2 Flow FiO2 Ox Delivery Rate 09/22 0653 15 09/22 0630 15 09/22 0500 15 09/22 0430 15 09/22 0430 98.3 80 22 159/83 92 OXYGEN 15 09/22 0300 15 09/22 0208 15 09/22 0100 15 09/22 0030 15 09/22 0030 98.9 79 20 119/64 96 OXYGEN 15 09/21 2300 15 09/21 2226 15 09/21 2100 15 09/21 2100 99.2 83 22 142/70 90 15 09/21 2030 15 09/21 2030 99.2 83 22 142/70 90 OXYGEN 15 09/21 1859 15 09/21 1752 15 09/21 1600 99.7 87 22 118/63 91 OXYGEN 09/21 1500 3 09/21 1325 3 09/21 1150 99.1 78 22 122/52 88 OXYGEN 09/21 1120 3 09/21 0946 98.5 82 22 114/52 88 3 09/21 0910 3 Current Medications Potassium Chloride 20 MEQ TID PO Insulin Human [rDNA origin] 0 .STK-MED ONE SC (DC) Potassium Chloride 0 .STK-MED ONE PO (DC) Iopamidol 75 ML ONCE ONE IV (DC) Sodium Chloride 10 ML PRN PRN IV (DC) Vancomycin HCl 1,750 MG Q12H IV (CKDr) Sodium Chloride 250 ML Potassium Chloride 40 MEQ ONCE ONE PO (DC) Pramipexole Dihydrochloride 0.5 MG QHS PO Tamsulosin HCl 0.4 MG QHS PO Diagnostic Test (Pha) 1 EACH W/MEALS&HS FS Insulin Human [rDNA origin] SEE ADMIN CRITERIA FOR LOW INTENSITY SS W/MEALS&HS SC Gabapentin 600 MG TID PO Carvedilol 25 MG BID PO Acetaminophen 650 MG Q6HP PRN PO Bimatoprost 1 DROP DAILY OP Duloxetine HCl 60 MG DAILY PO Piperacillin Sod/Tazobactam Sod 3.375 GM Q6H IV Sodium Chloride 50 ML Sodium Chloride 10 ML PRN PRN IV Vancomycin HCl 1,500 MG Q12H IV (DCr) Sodium Chloride 250 ML Sodium Chloride 1,000 ML .Q25H IV Influenza Virus Vaccine Quadrival 0.5 ML PRN PRN IM 09/21 1500 09/21 2300 09/22 0700 Intake Total 513 Output Total Balance 513 Intake, IV 513 Output, Stool Patient 161 lb Weight Last VS-Temp:98.3 B/P:159/83 Pulse:80 Resp:22 SaO2:92 OXYGEN Last weight lbs:161 oz:1 K.057 Method:Bed Scales Exam General appearance: alert Cardiovascular: regular rate & rhythm Respiratory: decrease in BS on the left; cracles heard on the left ABD: non-distended, soft, no tenderness, bowel sounds present Extremities: no peripheral edema Neuro: alert Assessment/Plan Problem List 1. HCAP (healthcare-associated pneumonia) 2. Pleural effusion, left Status: Acute 3. Hypotension 4. Dysphagia 5. CVA, old, aphasia Status: Chronic 6. Left hemiplegia Status: Chronic 7. Essential hypertension Status: Chronic 8. Diabetes mellitus type 2 Status: Chronic 9. Alcoholic cirrhosis Status: Chronic 10. History of alcoholism Status: Chronic 11. Shoulder pain, left Plan: will consult Hospice; maintain comfort This inpt stay is expected to cross 2 MNs from start of care Yes (Lise Drew APRN) Subjective Date 09/22/17 Time 0841 Assessment/Plan Problem List 1. Lung cancer, main bronchus 2. Collapsed lung 3. HCAP (healthcare-associated pneumonia) 4. Pleural effusion, left Status: Acute 5. Hypotension 6. Dysphagia 7. CVA, old, aphasia Status: Chronic 8. Left hemiplegia Status: Chronic 9. Essential hypertension Status: Chronic 10. Diabetes mellitus type 2 Status: Chronic 11. Alcoholic cirrhosis Status: Chronic 12. History of alcoholism Status: Chronic 13. Shoulder pain, left Plan: Patient seen and examined and concur with above. (Andree Snell MD) at 0840 at 0866
--- NOTE | 2017-09-22 10:54 | ACUTE CARE PROGRESS NOTE (QUA) ---
Progress Notes Subjective Date 09/22/17 Time 1052 Assessment/Plan Problem List 1. Lung cancer, main bronchus 2. Collapsed lung 3. HCAP (healthcare-associated pneumonia) 4. Pleural effusion, left Status: Acute 5. Hypotension 6. Dysphagia 7. CVA, old, aphasia Status: Chronic 8. Left hemiplegia Status: Chronic 9. Essential hypertension Status: Chronic 10. Diabetes mellitus type 2 Status: Chronic 11. Alcoholic cirrhosis Status: Chronic 12. History of alcoholism Status: Chronic 13. Shoulder pain, left This inpt stay is expected to cross 2 MNs from start of care Yes Antibiotic Stewardship (2) Current Culture Results Microbiology 09/19 819 BLOOD: Anaerobic Blood Culture - RES 09/19 819 BLOOD: Aerobic Blood Culture - RES Infxn that will respond? Yes (WBC ELEVATED, BUT AFEBRILE) Right drug,dose,and route? Yes More targeted antbx? No at 1056
[2017-09-23 07:45] VITALS: BP 128/66
[2017-09-23 08:00] VITALS: BP 128/66
--- NOTE | 2017-09-23 08:04 | ACUTE CARE PROGRESS NOTE (QUA) ---
Progress Notes Subjective Date 09/23/17 Time 0749 Note Pt to start with Hospice today; has been sedated. Objective Findings Laboratory Tests 09/23/17 0630: POC Glucose 128 H 09/22/17 1941: POC Glucose 131 H 09/22/17 1641: POC Glucose 138 H 09/22/17 1222: POC Glucose 182 H Vital Signs Date Time Temp Pulse Resp B/P Pulse O2 O2 Flow FiO2 Ox Delivery Rate 09/23 0646 15 09/23 0604 15 09/23 0524 15 09/23 0352 15 09/23 0304 15 09/23 0245 22 09/23 0243 22 09/23 0159 15 09/23 0130 15 09/22 2348 15 09/22 2300 15 09/22 2230 15 09/22 2151 22 09/22 2045 15 09/22 2045 98.4 96 22 150/63 93 15 09/22 2004 15 09/22 2004 98.4 96 22 150/63 93 OXYGEN 15 09/22 1840 15 09/22 1703 15 09/22 1647 22 09/22 1647 22 09/22 1550 98.2 73 30 107/47 93 OXYGEN 09/22 1512 15 09/22 1300 15 09/22 1230 97.4 71 26 142/65 93 OXYGEN 09/22 1020 15 09/22 1014 98.3 82 22 130/89 90 15 09/22 1007 22 09/22 0900 15 09/22 0830 98.3 82 24 130/89 90 OXYGEN Current Medications Morphine Sulfate 0 .STK-MED ONE .ROUTE (DC) Lorazepam 0 .STK-MED ONE .ROUTE (DC) Glycopyrrolate 0 .STK-MED ONE .ROUTE (DC) Lorazepam 0 .STK-MED ONE .ROUTE (DC) Glycopyrrolate 0 .STK-MED ONE .ROUTE (DC) Lorazepam 0 .STK-MED ONE .ROUTE (DC) Morphine Sulfate 0 .STK-MED ONE .ROUTE (DC) Glycopyrrolate 0.2 MG Q4HP PRN IV Morphine Sulfate 10 MG Q2HP PRN SL Lorazepam 0.5 MG Q4HP PRN IV Lorazepam 0 .STK-MED ONE .ROUTE (DC) Potassium Chloride 20 MEQ TID PO Vancomycin HCl 1,750 MG Q12H IV (CKDr) Sodium Chloride 250 ML Pramipexole Dihydrochloride 0.5 MG QHS PO Tamsulosin HCl 0.4 MG QHS PO Diagnostic Test (Pha) 1 EACH W/MEALS&HS FS Insulin Human [rDNA origin] SEE ADMIN CRITERIA FOR LOW INTENSITY SS W/MEALS&HS SC Gabapentin 600 MG TID PO Carvedilol 25 MG BID PO Acetaminophen 650 MG Q6HP PRN PO Bimatoprost 1 DROP DAILY OP Duloxetine HCl 60 MG DAILY PO Piperacillin Sod/Tazobactam Sod 3.375 GM Q6H IV Sodium Chloride 50 ML Sodium Chloride 10 ML PRN PRN IV Sodium Chloride 1,000 ML .Q25H IV Influenza Virus Vaccine Quadrival 0.5 ML PRN PRN IM 09/22 1500 09/22 2300 09/23 0700 Intake Total 240 1630 Output Total Balance 240 1630 Intake, IV 1630 Intake, Oral 240 Last VS-Temp:98.4 B/P:150/63 Pulse:96 Resp:22 SaO2:93 OXYGEN Last weight lbs:161 oz:1 K.057 Method:Bed Scales Exam General appearance: responsive Cardiovascular: regular rate & rhythm (tachycardiac) Respiratory: shallow RR at 50/min Neuro: opens eyes and otherwise sleeps Assessment/Plan Problem List 1. Lung cancer, main bronchus 2. Collapsed lung 3. HCAP (healthcare-associated pneumonia) 4. Pleural effusion, left Status: Acute 5. Hypotension 6. Dysphagia 7. CVA, old, aphasia Status: Chronic 8. Left hemiplegia Status: Chronic 9. Essential hypertension Status: Chronic 10. Diabetes mellitus type 2 Status: Chronic 11. Alcoholic cirrhosis Status: Chronic 12. History of alcoholism Status: Chronic 13. Shoulder pain, left 14. Palliative care patient Patient condition Deteriorating Plan: continue with comfort care; will disc ABX and routine home meds This inpt stay is expected to cross 2 MNs from start of care Yes (Lise Drew APRN) Assessment/Plan Problem List 1. Palliative care patient 2. Lung cancer, main bronchus 3. Collapsed lung 4. HCAP (healthcare-associated pneumonia) 5. Pleural effusion, left Status: Acute 6. Hypotension 7. Dysphagia 8. CVA, old, aphasia Status: Chronic 9. Left hemiplegia Status: Chronic 10. Essential hypertension Status: Chronic 11. Diabetes mellitus type 2 Status: Chronic 12. Alcoholic cirrhosis Status: Chronic 13. History of alcoholism Status: Chronic 14. Shoulder pain, left Plan: Pt seen and examined. Concur with above. He is comfortable. Will d/c antibiotics and po meds (Andree Snell MD) at 0804 at 0806
[2017-09-23 19:12] VITALS: BP 122/73
[2017-09-23 20:24] VITALS: BP 122/73
[2017-09-24 08:00] VITALS: BP 68/33
--- NOTE | 2017-09-24 08:11 | ACUTE CARE PROGRESS NOTE (QUA) ---
Progress Notes Subjective Date 09/24/17 Time 0809 Note According to patient's , she was contacted around midnight because his breathing changed. She states he has been comfortable all night. Objective Findings Last VS-Temp:101.1 B/P:122/73 Pulse:100 Resp:50 SaO2:84 OXYGEN Last weight lbs:161 oz:1 K.057 Method:Bed Scales Exam General appearance: Pt not responsive Cardiovascular: regular rate & rhythm Respiratory: diminished breath sounds Assessment/Plan Problem List 1. Palliative care patient 2. Lung cancer, main bronchus 3. Collapsed lung 4. HCAP (healthcare-associated pneumonia) 5. Pleural effusion, left Status: Acute 6. Hypotension 7. Dysphagia 8. CVA, old, aphasia Status: Chronic 9. Left hemiplegia Status: Chronic 10. Essential hypertension Status: Chronic 11. Diabetes mellitus type 2 Status: Chronic 12. Alcoholic cirrhosis Status: Chronic 13. History of alcoholism Status: Chronic 14. Shoulder pain, left Plan: Maintain comfort measures. This inpt stay is expected to cross 2 MNs from start of care Yes (Sondra Martinez) Subjective Date 09/24/17 Time 0822 Assessment/Plan Problem List 1. Palliative care patient 2. Lung cancer, main bronchus 3. Collapsed lung 4. HCAP (healthcare-associated pneumonia) 5. Pleural effusion, left Status: Acute 6. Hypotension 7. Dysphagia 8. CVA, old, aphasia Status: Chronic 9. Left hemiplegia Status: Chronic 10. Essential hypertension Status: Chronic 11. Diabetes mellitus type 2 Status: Chronic 12. Alcoholic cirrhosis Status: Chronic 13. History of alcoholism Status: Chronic 14. Shoulder pain, left Plan: Concur with above. (Andree Snell MD) at 0810 at 0823
[2017-09-24 08:19] VITALS: BP 122/73
--- NOTE | 2017-09-24 11:02 | ACUTE CARE PROGRESS NOTE (QUA) ---
Progress Notes Subjective Date 09/24/17 Time 1100 Note Called to confirm of patient in Hospice care. Respirations ceased at 10: 35 am today. Objective Exam Cardiovascular: no heart sounds or pulse present Assessment/Plan Problem List 1. Palliative care patient 2. Lung cancer, main bronchus 3. Collapsed lung 4. HCAP (healthcare-associated pneumonia) 5. Pleural effusion, left Status: Acute 6. Hypotension 7. Dysphagia 8. CVA, old, aphasia Status: Chronic 9. Left hemiplegia Status: Chronic 10. Essential hypertension Status: Chronic 11. Diabetes mellitus type 2 Status: Chronic 12. Alcoholic cirrhosis Status: Chronic 13. History of alcoholism Status: Chronic 14. Shoulder pain, left This inpt stay is expected to cross 2 MNs from start of care Yes Comments: OK to release body to home. at 1101
--- NOTE | 2017-09-29 21:33 | DISCHARGE SUMMARY STANDARD ---
Discharge Summary (FCA2) Date of admission: 09/19/17 Date of discharge: 09/24/17 Problem List: 1. Palliative care patient 2. Lung cancer, main bronchus 3. Collapsed lung 4. HCAP (healthcare-associated pneumonia) 5. Pleural effusion, left 6. Hypotension 7. Dysphagia 8. CVA, old, aphasia 9. Left hemiplegia 10. Essential hypertension 11. Diabetes mellitus type 2 12. Alcoholic cirrhosis 13. History of alcoholism 14. Shoulder pain, left History of present illness: Mr. Noel was a 67yo male patient at [facility] with a hx of CVA, left hemiparesis, and aspiration of anything less than thick liquids. He had a hx of liver cirrhosis and alcoholism. He presented to the ER two days prior to admission with AMS. His labs were within normal limits. He was hydrated and sent back to [facility]. He presented to the ER again with AMS and low oxygen sats. He was found to have a left sided pneumonia. According to the CXR from the previous ER visit, he had pneumonia at that time as well. He was admitted. Exam on admission: General appearance: awake, yelling at the nursing staff giving him a bath Eyes: EOM's w/normal ROM, PERRLA ENT: nose normal, pharynx normal, dry mucous membranes Neck: non-tender, full range of motion, supple Cardiovascular: regular rate & rhythm Respiratory: diminished breath sounds on the left with rales and rhonchi, right with faint wheezes ABD: non-distended, normal bowel sounds, no rebound, soft, no tenderness, no guarding Extremities: no peripheral edema Musculoskeletal: left sided weakness from CVA Skin: pale Neuro: speech clear, agitated Hospital Course: His CXR showed a large left pleural effusion with underlying airspace disease with opacification of the left lung. There was a possible left mediastinal mass or aneurysm. CT was recommended. A CT of the head showed a large area of encephalomalacia on the right with an old infarction of the middle cerebral artery. The patient was started on abx. He became hypotensive and had to be given IV fluid boluses. This improved. By the time he was seen by Dr. Snell , he opened his eyes to voice but o/w did not respond. He appeared in no resp distress. He did have BS on left lung. By 09/21/17, the patient had a decrease in his oxygen sats and a venti mask had to be placed. He had a CT of the chest showing a large left pleural effusion with a collapsed left lung with complete opacification of the left chest. There was a soft tissue density that filled the left mainstem bronchus. An obstructing lesion was suspected at the distal aspect of the left mainstem bronchus measuring 2 cm with occlusion of the left mainstem bronchus. There was also a right-sided pneumonia with trace right effusion. Dr. Snell discussed patient 's condition with , Suly. She wished to consult with Hospice for care. The patient was accepted by Hospice and his abx and home medications were discontinued. Comfort care was started. The patient on 09/24/17 at 10: 35 am. Discharge medications: Stop taking the following medications: Omeprazole (Omeprazole 20MG) 20 MG CAPSULE. ORAL AT BEDTIME NIGHTLY Amlodipine Besylate (Amlodipine Besylate) 2.5 MG TABLET ORAL DAILY BACLOFEN (Baclofen) 10 MG TABLET ORAL TWICE A DAY Carvedilol (Carvedilol 25MG) 25 MG TABLET ORAL TWICE A DAY Duloxetine Hcl (Duloxetine 30MG Capsule) 30 MG CAPSULE. ORAL DAILY DULOXETINE HCL (Cymbalta 60MG) 60 MG CAPSULE. ORAL DAILY Apixaban (Eliquis) 5 MG TABLET ORAL TWICE A DAY Gabapentin (Gabapentin 600MG) 600 MG TABLET ORAL THREE TIMES A DAY Bimatoprost (Lumigan 0.1% Ophth Soln) 2.5 ML DROPS OPHTHALMIC DAILY POTASSIUM CHL (Potassium Chloride) 20 MEQ TAB.ER.PRT ORAL DAILY Pramipexole Dihydrochloride (Mirapex 1 Mg Tablet) 1 MG TABLET ORAL AT BEDTIME NIGHTLY TAMSULOSIN HCL (Flomax 0.4MG) 0.4 MG CAP.ER.24H ORAL AT BEDTIME NIGHTLY TRAMADOL HCL (Tramadol) 50 MG TABLET ORAL THREE TIMES A DAY Lactulose (Lactulose) 10 GM/15 ML SOLUTION ORAL DAILY as needed for CONSTIPATION Acetaminophen (Tylenol XS 500MG) 500 MG TABLET ORAL EVERY 4 HOURS NEEDED as needed for PAIN/FEVER Bisacodyl (Bisacodyl Supp) 10 MG SUPP.RECT PER RECTUM DAILY NEEDED as needed for BOWEL MOVEMENT Hydroxyzine Pamoate (Hydroxyzine) 25 MG CAPSULE ORAL EVERY 4 HOURS NEEDED as needed for ANXIETY/ITCHING Nicotine Polacrilex (Nicorelief) 4 MG GUM ORAL EVERY 2 HOURS NEEDED as needed for SMOKING CESSATION Polyethylene Glycol 3350 (Miralax) 17 GM POWD.PACK ORAL DAILY Guaifenesin (Robafen) 100 MG/5 ML LIQUID ORAL EVERY 6 HOURS NEEDED as needed for COUGH Phenol/Glycerin (Chloraseptic Max [place]) 30 ML SPRAY Mouth / Throat EVERY 2 HOURS NEEDED as needed for SORE THROAT Ondansetron (Zofran Odt) 4 MG TAB.RAPDIS ORAL EVERY 8 HOURS NEEDED as needed for NAUSEA/VOMITING ALBUTEROL-IPRATROPIUM (Iprat-Albut 0.5-3(2.5) MG/3 Ml) 3 ML AMPUL.NEB INHALATION EVERY 2 HOURS NEEDED as needed for SHORTNESS OF BREATH Insulin Glargine (Lantus Insulin Vial) 100 UNIT/ML VIAL Subcutaneous Injection AT BEDTIME NIGHTLY Lactulose (Lactulose) 10 GM/15 ML SOLUTION ORAL Q8H Disposition: Pt at 3829
== END 2017-09-24 10:35 | disposition expired | DRG 180 ==
LOC: ER 07:57 → 2ND 09:16 → ER 09:16 → 2ND 09:49
PROVIDERS: Emergency Medicine; Family Medicine
DX: C34.02 Malignant neoplasm of left main bronchus (principal); J18.9 Pneumonia, unspecified organism; I48.0 Paroxysmal atrial fibrillation; I69.354 Hemiplegia and hemiparesis following cerebral infarction affecting left non-dominant side; J90 Pleural effusion, not elsewhere classified; I69.320 Aphasia following cerebral infarction; J98.11 Atelectasis; J44.9 Chronic obstructive pulmonary disease, unspecified; Z87.891 Personal history of nicotine dependence; I10 Essential (primary) hypertension; F10.21 Alcohol dependence, in remission; K70.30 Alcoholic cirrhosis of liver without ascites; E11.9 Type 2 diabetes mellitus without complications
CPT/HCPCS: J2543; J3370; Q9967